=== PATIENT | male | born 1960 | race Caucasian/White ===

== ENCOUNTER 2021-06-18 11:27 | Emergency (ER) | payer BC, SELFPAY ==
--- NOTE | ~2021-06-18 | US_ITS ---
EXAMINATION:US venous doppler LE LT INDICATION:Left leg pain TECHNIQUE: Multiple grayscale, color flow and Doppler images of the left lower extremity deep venous systems were obtained and reviewed. COMPARISON:No prior studies for comparison. FINDINGS: The common femoral, superficial femoral and popliteal veins demonstrate normal respiratory variation, augmentation and compressibility. Color flow is also seen within the posterior tibial, pe roneal, greater saphenous and profunda veins. There is superficial thrombosis in the left lesser saph enous vein. IMPRESSION: 1: No lower extremity deep venous thrombosis. 2: Superficial vein thrombosis of the left lesser saphenous vein. Reviewed, dictated and finalized at location A. MAKER
[2021-06-18 11:36] VITALS: BP 146/79; PULSE 83; RESP 16; TEMP 36.9; O2SAT 100
[2021-06-18 12:31] LABS: Basophils Percent Auto 0.6 % (0.2-1.2); Eosinophils Absolute Auto 0.1 K/mm3 (0-0.3); Eosinophils Percent Auto 0.9 % (0-4.4); Hematocrit 47.4 % (42.0-52.0); Immature Granulocyte Absolute 0.01 K/mm3 (0.00-0.031); Immature Granulocyte Percent A 0.2 % (0-0.5); Lymphocytes Absolute Auto 1.45 K/mm3 (0.9-3.2); Lymphocytes Percent Auto 22.3 % (18.3-44.2); Mean Corpuscular HGB Conc 33.8 g/dl (32-36); Mean Corpuscular Volume 91.9 fl (80-100); Mean Platelet Volume 10.5 fl (7.4-10.4); Monocytes Absolute Auto 0.7 K/mm3 (0.1-0.6); Monocytes Percent Auto 11.4 % (2.6-8.5); Neutrophils Absolute Auto 4.2 K/mm3 (1.3-6.7); Neutrophils Percent Auto 64.6 % (45.5-73.1); Platelet Count Result 222 k/mm3 (150-375); Red Blood Count 5.16 M/mm3 (4.6-6.20); Red Cell Distribution Width 12.8 % (11.5-14.5); White Blood Count 6.5 K/mm3 (4.5-10.0)
[2021-06-18 12:41] LABS: Partial Thromboplastin Time 29.5 SECONDS (22.3-36.8)
[2021-06-18 12:45] LABS: Anion Gap 9 mmol/L (8-16); Blood Urea Nitrogen 13 mg/dL (9-20); CRP < 0.5 mg/dL (<1.0); Calcium 9.7 mg/dL (8.4-10.2); Carbon Dioxide 25 mmol/L (22-30); Chloride 105 mmol/L (98-107); Estimated CRCL calculation 102 ml/min; Estimated Glomerular Filt Rate > 60; Glucose 120 mg/dL (65-110); Sodium 139 mmol/L (137-145)
[2021-06-18 13:21] LABS: Erythrocyte Sedimentation Rate 5 mm/hr (0-20)
--- NOTE | 2021-06-18 13:53 | ED.LOWEXIN ---
HPI - Extremity Injury (Lower) General Chief Complaint: Extremity Injury, Lower Stated Complaint: CALF PAIN. R/O DVT Time Seen by Provider: 06/18/21 12:04 Source: patient Mode of arrival: ambulatory Limitations: no limitations History of Present Illness HPI Narrative: This is a 60-year-old male that presents to the emergency department for left calf pain. Present x2 weeks. Reports some swelling to the area. No recent travel or surgery. Denies fever, erythema, chest pain, or shortness of breath. Related Data Home Medications Medication Instructions Recorded Confirmed cholecalciferol (vitamin D3) 50 2,000 unit PO DAILY 03/30/19 02/23/21 mcg (2,000 unit) tablet Allergies Allergy/AdvReac Type Severity Reaction Status Date / Time azithromycin Allergy Mild BLOOD IN Verified 06/18/21 12:13 STOOL Review of Systems Review of Systems: CONSTITUTIONAL: Denies fever CARDIOVASCULAR: Reports edema. Denies chest pain RESPIRATORY: Denies dyspnea. MUSCULOSKELETAL: Reports myalgia. All systems reviewed & are unremarkable except as noted in HPI and below PMFSH Past Medical History Medical History (Updated 06/18/21 @ 13:58 by Jelly Sequeira PA-C) BMI 34.0-34.9,adult BMI 35.0-35.9,adult Bradycardia Chronic low back pain without sciatica Controlled diabetes mellitus type II without complication Elevated PSA, less than 10 ng/ml PSA 4.4 on 08/12/2020 Encounter for wellness examination in adult Insomnia Social History Social History (Updated 02/23/21 @ 10:05 by Nadiya Gonzalez MA) Smoking status: Former smoker Alcohol intake: current Drinks per week: 5 Substance use: never Substance use type: does not use Exam Narrative: GENERAL: Well-appearing, well-nourished, and in no acute distress. HEAD: Normocephalic, atraumatic. EYES: EOMI. CHEST: No respiratory distress. HEART: Regular rate EXTREMITIES: Normal range of motion. Mild edema to the left calf, tender to palpation. No erythema or warmth. Normal DP pulses SKIN: Warm, dry, no rash. NEURO: No focal deficits. Alert and oriented x3. PSYCH: Normal mood and affect Course Consultations Consultation #1: Spoke with Dr. Elizondo about patient and workup who would like patient started on an aspirin daily and will follow up in clinic Date: 06/18/21 Vital Signs Vital signs: Vital Signs Temperature 98.4 F 06/18/21 11:36 Pulse Rate 83 06/18/21 11:36 Respiratory Rate 16 06/18/21 11:36 Blood Pressure 146/79 H 06/18/21 11:36 Pulse Oximetry 100 06/18/21 11:36 Temperature 98.4 F 06/18/21 11:36 Pulse Rate 83 06/18/21 11:36 Respiratory Rate 16 06/18/21 11:36 Blood Pressure 146/79 H 06/18/21 11:36 Pulse Oximetry 100 06/18/21 11:36 MDM - Extremity Injury (Lower) MDM Narrative Medical decision making narrative: Patient presents to the emergency department for left calf pain and swelling noted over the last couple of weeks. He is afebrile and nontoxic-appearing. White blood cell count is normal. Inflammatory markers are not elevated. Left lower extremity venous Dopplers without evidence of DVT. Does show a superficial vein thrombosis of the left lesser saphenous vein. Patient was updated on case findings. Spoke with Dr. Elizondo about patient and workup who would like patient started on an aspirin daily and will follow up in clinic. Patient is stable and felt appropriate for further outpatient evaluation. He was given warnings to return to the ER Lab Data Attestation: I reviewed the patient's lab results. Result diagrams: 06/18/21 12:15 06/18/21 12:15 Labs: Lab Results 06/18/21 06/18/21 06/18/21 Range/Units 12:15 12:15 12:15 WBC 6.5 (4.5-10.0) K/mm3 RBC 5.16 (4.6-6.20) M/mm3 Hgb 16.0 (14.0-18.0) g/dL Hct 47.4 (42.0-52.0) % MCV 91.9 (80-100) fl MCH 31.0 (26-34) pg MCHC 33.8 (32-36) g/dl RDW 12.8 (11.5-14.5) % Plt Count 222 (150-375) k/
== END 2021-06-18 14:28 | disposition home or self-care (01) ==
PROVIDERS: Physician Assistant; Emergency Provider Emergency Medicine; PCP Family Medicine
DX: I82.812 Embolism and thrombosis of superficial veins of left lower extremity (principal); E11.9 Type 2 diabetes mellitus without complications; Z87.891 Personal history of nicotine dependence
CPT/HCPCS: 36415; 80048; 85025; 85610; 85652; 85730; 86140; 93971; 99284

== ENCOUNTER 2021-12-22 09:17 | Inpatient (IN) | payer BC, SELFPAY ==
[2021-12-22] VITALS (28 sets, daily range): BP systolic 116–164; BP diastolic 70–130; PULSE 72–200; RESP 18–33; TEMP 36.4–37.6; O2SAT 96–100; BMI 31.1
--- NOTE | ~2021-12-22 | XR_ITS ---
EXAMINATION: XR chest 2V DATE: 12/22/2021 09:48 INDICATION: Palpitations. TECHNIQUE: Frontal and lateral views of the chest were obtained. COMPARISON: Chest single view 10/12/2007 FINDINGS: A calcified left lung nodule and calcified left hilar lymph nodes are consistent with old g ranulomatous disease. No pleural effusion or pneumothorax. The heart size is normal. There is mild ch ronic anterior wedging of T11 and T12 vertebral bodies. IMPRESSION: 1. No acute cardiopulmonary disease. Reviewed, dictated and finalized at location A.
--- NOTE | 2021-12-22 09:21 | ECG_ITS ---
Measurements Intervals [place] Rate: 167 P: [place]: 0 QRS: -7 QRSD: 86 T: -38 QT: 176 QTc: 293 Interpretive Statements ATRIAL FIBRILLATION WITH RAPID VENTRICULAR RESPONSE NONSPECIFIC ST & T-WAVE ABNORMALITY ABNORMAL RHYTHM ECG NO PREVIOUS ECG AVAILABLE FOR COMPARISON Electronically Signed On 12-22-2021 10:25:18 CDT by Nikunj Garcia M.D.
[2021-12-22 09:31] LABS: Basophils Absolute Auto 0.1 K/mm3 (0.0-0.1); Basophils Percent Auto 0.7 % (0.2-1.2); Eosinophils Absolute Auto 0.2 K/mm3 (0-0.3); Eosinophils Percent Auto 2.2 % (0-4.4); Hematocrit 51.7 % (42.0-52.0); Hemoglobin 17.2 g/dL (14.0-18.0); Immature Granulocyte Absolute 0.03 K/mm3 (0.00-0.031); Immature Granulocyte Percent A 0.4 % (0-0.5); Lymphocytes Absolute Auto 3.24 K/mm3 (0.9-3.2); Lymphocytes Percent Auto 43.5 % (18.3-44.2); Mean Corpuscular HGB Conc 33.3 g/dl (32-36); Mean Corpuscular Hemoglobin 31.4 pg (26-34); Mean Corpuscular Volume 94.5 fl (80-100); Mean Platelet Volume 10.7 fl (7.4-10.4); Monocytes Percent Auto 12.8 % (2.6-8.5); Neutrophils Percent Auto 40.4 % (45.5-73.1); Platelet Count Result 210 k/mm3 (150-375); Red Blood Count 5.47 M/mm3 (4.6-6.20); Red Cell Distribution Width 13.2 % (11.5-14.5); White Blood Count 7.4 K/mm3 (4.5-10.0)
--- NOTE | 2021-12-22 09:31 | ED.ARRPALP ---
HPI - Arrhythmia/Palpitations General Chief Complaint: Arrhythmia/Palpitations Stated Complaint: palpitations - history AFIB Time Seen by Provider: 12/22/21 09:29 History of Present Illness HPI narrative: This is a 61-year-old male with past medical history of paroxysmal A. fib, anxiety, hypertension, who presents to the emergency department complaining of lightheadedness and palpitations. He states he noted the palpitations approximately 45 minutes prior to arrival. This is not accompanied by pain and has no specific trigger. He states he has felt similar symptoms before, that required cardioversion. He states he feels a bit dehydrated. He denies weakness, numbness, abdominal pain, vomiting, fevers or chills, burning with urination or increased urination. Related Data Home Medications Medication Instructions Recorded Confirmed cholecalciferol (vitamin D3) 50 2,000 unit PO DAILY 03/30/19 12/22/21 mcg (2,000 unit) tablet mecobalamin (vitamin B12) 1,000 1,000 mcg PO DAILY 12/22/21 12/22/21 mcg chewable tablet (B12 Active) zolpidem 10 mg tablet (Ambien) 5 mg PO QHS PRN insomnia 12/22/21 12/22/21 Allergies Allergy/AdvReac Type Severity Reaction Status Date / Time azithromycin Allergy Mild BLOOD IN Verified 12/22/21 09:18 STOOL Review of Systems Review of Systems: CONSTITUTIONAL: Denies fever, chills, or sweats. EYES: Denies visual changes, redness, or discharge. ENT: Denies rhinorrhea, congestion, sore throat, or otalgia. CARDIOVASCULAR: +palpitations, Denies chest pain, or edema. RESPIRATORY: Denies cough or dyspnea. GASTROINTESTINAL: Denies abdominal pain, nausea, vomiting, or diarrhea. GENITOURINARY: Denies dysuria or hematuria. SKIN: Denies rash or itching. MUSCULOSKELETAL: Denies back pain, joint pain, or myalgia. NEUROLOGIC: Denies headache, numbness, dizziness, or weakness. PSYCHIATRIC: Denies anxiety or depression. [facility] Past Medical History Medical History (Updated 12/22/21 @ 11:19 by Solo Carr MD) Acute superficial venous thrombosis of lower extremity (~06/04/21) superficial vein thrombosis in the left lesser saphenous vein in ER 06/18/2021 BMI 33.0-33.9,adult BMI 34.0-34.9,adult BMI 35.0-35.9,adult Bradycardia Chronic low back pain without sciatica Colon cancer screening Cologuard screening was negative on 05/26/2019. Recheck in 3 years. Controlled diabetes mellitus type II without complication Glucose 104 with hemoglobin A1c 5.7 on 08/17/2021. COVID-19 (10/23/21) positive home test on 10/22/2021. Elevated PSA, less than 10 ng/ml PSA 4.4 on 08/12/2020. PSA 5.3 with 19.4% free PSA on 08/17/2021. Encounter for wellness examination in adult Frequent epistaxis Gross hematuria Insomnia Lateral epicondylitis of left elbow Obesity (BMI 30.0-34.9) Family History Family History (Updated 12/22/21 @ 12:34 by Simin Weston RN) Mother Acute myocardial infarction Congestive heart failure Hypertension Other No problems noted. Father History of blood clots Chronic obstructive pulmonary disease Prostate carcinoma Sibling History of blood clots Cerebrovascular accident Diabetes mellitus Hypertension Social History Social History Smoking status: Never smoker Alcohol intake: current Drinks per week: 14 Substance use: never Substance use type: does not use Spiritual care concerns: No Exam Narrative: GENERAL: Well-appearing, well-nourished, and in no acute distress. HEAD: Normocephalic, atraumatic. EYES: PERRLA and EOMI. ENT: Nares clear, no rhinorrhea or epistaxis. Mucous membranes moist. Oropharynx without tonsillar hypertrophy exudate or other lesions. Bilateral TMs pearly sanabria nonbulging NECK: Supple. No adenopathy or masses. No carotid bruits or JVD CHEST: Clear to auscultation. No respiratory distress. No wheezes rales or rhonchi HEART: Irregularly irregular. No murmur heard. No
[2021-12-22] MEDS: dilTIAZem HCl INJ 25 MG/5 ML VIAL 20 MG IV PUSH ×2 (09:32→09:55)
[2021-12-22] MEDS: LACTATED RINGERS 1,000 ML 999 ML IV CONT (09:35)
[2021-12-22 09:44] LABS: INR 1.1; Prothrombin Time 13.5 Seconds (11.1-14.7)
[2021-12-22] MEDS: dilTIAZem HCL 60 MG TABLET PO (09:50)
[2021-12-22 10:18] LABS: Alanine Aminotransferase 20 U/L (6-50); Albumin Level 4.7 g/dL (3.5-5.1); Alkaline Phosphatase 104 U/L (38-126); Anion Gap 11 mmol/L (8-16); Aspartate Amino Transferase 21 U/L (17-59); Blood Urea Nitrogen 12 mg/dL (9-20); Calcium 9.7 mg/dL (8.4-10.2); Carbon Dioxide 23 mmol/L (22-30); Chloride 105 mmol/L (98-107); Estimated CRCL calculation 89 ml/min; Estimated Glomerular Filt Rate > 60; Glucose 136 mg/dL (65-110); Lipase 76 U/L (23-300); Potassium 3.5 mmol/L (3.4-5.0); Sodium 139 mmol/L (137-145)
[2021-12-22] MEDS: ASPIRIN 81 MG CHEWABLE TABLET 324 MG PO (10:39)
[2021-12-22 10:45] LABS: Troponin I < 0.012 ng/mL (0.000-0.034)
[2021-12-22] MEDS: METOPROLOL TARTRATE 50 MG TAB 25 MG PO (12:07)
--- NOTE | 2021-12-22 12:20 | ADMGEN ---
This patient, Marshall Thomson, was admitted to IMU Room 203-01. Patient/family oriented to hospital policies and general routines including ID bracelet, bed and alarms, visiting hours, pain management, procedures, bathroom and other care routines, personal items, smoking policy, room service/diet, and visiting hours. Information on how to activate the Rapid Response Team has been discussed. Patient/Family are encouraged to report perceived risks to care and to ask questions if they do not understand what they are told or what they should do.
[2021-12-22 12:55] LABS: Troponin I < 0.012 ng/mL (0.000-0.034)
--- NOTE | 2021-12-22 14:13 | PM.CNCAR ---
Assessment and Plan Assessment and plan (1) Atrial fibrillation with rapid ventricular response: Code(s): I48.91 - Unspecified atrial fibrillation Status: Acute Plan This is a 61-year-old man with a near 30 year history of paroxysmal atrial fibrillation who enters the hospital this morning with a symptomatic recurrence of his arrhythmia. His arrhythmia is very commonly self-limited today's episode however is persistent at this juncture for about 6 hours. He did make the decision to anticoagulate himself this morning by taking apixaban. He had also received some diltiazem and metoprolol in the emergency room and his heart rate is currently in the 80s. I am going to continue the apixaban starting with another dose this evening and I am going to start him on antiarrhythmic therapy with sotalol. Hopefully this will convert him to sinus rhythm. I will follow him with you while he is in the hospital and if his AFib persists we can certainly plan to electrically cardiovert him on Saturday morning since he has been anticoagulated since the onset of the arrhythmia he would not need esophageal echo in my opinion. Nikunj Garcia MD [facility] History of Present Illness History of Present Illness Consult date/time: 12/22/21 14:13 Consult reason: atrial fibrillation Reason For Visit: AFIB with RVR Narrative: This is a 61-year-old man I am seeing at the request of the hospitalist for assistance with the treatment of atrial fibrillation. Patient is unknown to me prior to this encounter. He has a history of paroxysmal atrial fib dating back to the mid . Over that period of close to 30 years he has had 6 or 7 episodes of atrial fibrillation that have cause symptomatic palpitations and medical evaluation. On most of these episodes he spontaneously has converted back to sinus rhythm in the emergency room without requiring any additional treatment. He thinks he has had 3 or 4 echocardiograms done most recently as last year in another final assembler's office out in [facility] which he has told were normal. He had the last episode of atrial fibrillation about 4 years ago when he was out of town on business. He went to a local emergency room and actually was electrically cardioverted to sinus rhythm and allowed to be discharged. He has never been placed on any antiarrhythmic medical therapy. The final assembler who saw him for consult in [facility] last year recommended and prescribed apixaban for him to take. He got the prescription but never did start taking it because he was maintaining sinus rhythm. This morning he noted the onset of atrial fibrillation again with palpitations and tachycardia as he was making breakfast in his home. He says he is had a relatively stressful night before interacting with a friend of his and also was under some stress because he is sitting for a friend's dog and he finds that somewhat anxiety provoking. He noted the onset of atrial fibrillation this morning he sat down to relax for a while because many times the episodes will be self-limited. When this episode was persistent for a couple hours he came to the emergency room. In the ED his electrocardiogram confirmed AFib with RVR looks a he was given some diltiazem intravenously he was also given a dose of metoprolol orally and was admitted to the IMU. The patient shared with me that when this began this morning he took a dose of apixaban 5 mg tablet that he had from the prescription supplied as I described above. His only other significant chronic medical problem is hypertension which he states is usually well controlled with lisinopril. Review of Systems Constitutional: Constitutional: Reports no additional constitutional complaints Eyes: Eyes: Reports no additional eye complaints ENT: Reports system reviewed and no additional complaints, except as documented Cardiovascular: Cardiovascular: Reports palpitations Respiratory: Respiratory: Reports no additional r
[2021-12-22] MEDS: LACTATED RINGERS 1,000 ML 125 ML IV CONT ×2 (15:03→23:10)
[2021-12-22] MEDS: SOTALOL HCL 80 MG TABLET PO ×2 (15:04→23:11)
[2021-12-22 15:29] LABS: Troponin I 0.013 ng/mL (0.000-0.034)
--- NOTE | 2021-12-22 16:00 | ECG_ITS ---
Measurements Intervals [place] Rate: 87 P: [place]: 0 QRS: -32 QRSD: 83 T: 19 QT: 296 QTc: 358 Interpretive Statements ATRIAL FIBRILLATION CANNOT RULE OUT INFERIOR MYOCARDIAL INFARCTION, AGE INDETERMINATE ABNORMAL ECG COMPARED TO ECG 12/22/2021 09:24:31 HEART RATE HAS DECREASED Electronically Signed On 12-23-2021 13:24:16 CDT by Gokul Person M.D.
[2021-12-22] MEDS: APIXABAN 5 MG TABLET PO (20:24)
[2021-12-22 20:42] LABS: Glucose Point of Care 137 mg/dl (65-105)
[2021-12-23] VITALS (18 sets, daily range): BP systolic 106–141; BP diastolic 68–95; PULSE 53–89; RESP 20; TEMP 35.7–37.2; O2SAT 98–100
--- NOTE | 2021-12-23 00:03 | ECG_ITS ---
Measurements Intervals [place] Rate: 75 P: [place]: 0 QRS: -22 QRSD: 97 T: 5 QT: 336 QTc: 377 Interpretive Statements ATRIAL FIBRILLATION LOW QRS VOLTAGE IN PRECORDIAL LEADS ABNORMAL ECG COMPARED TO ECG 12/22/2021 15:57:51 NO SIGNIFICANT CHANGES Electronically Signed On 12-23-2021 13:27:20 CDT by Gokul Person M.D.
[2021-12-23] MEDS: LACTATED RINGERS 1,000 ML 125 ML IV CONT (06:31)
--- NOTE | 2021-12-23 08:41 | PM.IMHP ---
H&P: HPI History of Present Illness Date/Time: 12/23/21 08:41 Chief Complaint: Atrial fibrillation Narrative: Date of service: 12/23/2021 Marshall Thomson is a 61-year-old male with a history of paroxysmal atrial fibrillation s/p cardioversion in 1984 and 2017 not maintained on anticoagulation, hypertension, low back pain, and superficial venous thrombosis who presented to the emergency department on 12/22/2021 with complaints of palpitations and lightheadedness. The patient awoke on the morning of 12/22 feeling normally. He was making breakfast when he suddenly felt that his ?heart was not beating correctly? and he felt slightly lightheaded. He initially thought this might be related to PVCs, which he states he notices on an almost monthly basis. He states this typically improves if he takes some deep breaths and attempts to relax, however his symptoms persisted. He then knew he was in AFib due to his history and similar symptoms The patient feels this was triggered by having a stressful and aggravating week following a confrontation with his friend. The night before, he took 1-2 shots of bourbon. He states in the past, each episode of atrial fibrillation he has had has been triggered by drinking cold liquids. The patient states he was cardioverted in 2017 while traveling in [place]. At that time he filled a prescription for Eliquis but never took this medication. He is not maintained on any rate or rhythm controlling agents. He is not established with a cloth calender and follows with his PCP. He reports having seen an spray machine loader in the past several years ago. He did take his 1st dose of Eliquis the morning of 12/22 as soon as he realized he was in AFib. On presentation to the ED, his EKG showed atrial fibrillation with rapid ventricular response with heart rate of 167. He was given diltiazem with rate improvement. Additional vital signs were stable, laboratory workup unremarkable, troponin negative. He has been admitted to the hospitalist service for observation and Cardiology consultation. Supervising physician for this history and physical is Dr. Helena Patiño. Review of Systems Review of Systems: All systems reviewed with pertinent positives and negatives as per HPI. The patient denies chest pain, shortness of breath, dizziness, lightheadedness, weakness, nausea, vomiting, abdominal pain, diarrhea, dysuria. States his blood sugars are very well controlled at home and he is not on any medications for diabetes. [facility] Past Medical History Medical History (Updated 12/23/21 @ 08:54 by Megha Pruitt PA-C) Acute superficial venous thrombosis of lower extremity (~06/04/21) superficial vein thrombosis in the left lesser saphenous vein in ER 06/18/2021 Bradycardia Chronic low back pain without sciatica Colon cancer screening Cologuard screening was negative on 05/26/2019. Recheck in 3 years. Controlled diabetes mellitus type II without complication Glucose 104 with hemoglobin A1c 5.7 on 08/17/2021. COVID-19 (10/23/21) positive home test on 10/22/2021. Elevated PSA, less than 10 ng/ml PSA 4.4 on 08/12/2020. PSA 5.3 with 19.4% free PSA on 08/17/2021. Frequent epistaxis Gross hematuria History of cardioversion 1994, 2017 Insomnia Lateral epicondylitis of left elbow Obesity (BMI 30.0-34.9) Family History Family History Mother Acute myocardial infarction Congestive heart failure Hypertension Father History of blood clots Chronic obstructive pulmonary disease Prostate carcinoma Atrial fibrillation Sibling History of blood clots Cerebrovascular accident Diabetes mellitus Hypertension Social History Social History (Updated 12/23/21 @ 08:57 by Megha Pruitt PA-C) Social History: Lives independently Recently retired in February 2021 Full code POA: Anny, PCP: Dr. Amari Elizondo Smoking packs per day: 0.5 Smo
[2021-12-23] MEDS: SOTALOL HCL 80 MG TABLET PO ×2 (09:39→21:02)
[2021-12-23] MEDS: lisinopriL 20 MG TABLET PO (09:40)
[2021-12-23] MEDS: CHOLECALCIFEROL 1,000 UNITS TABLET 2000 UNITS PO (09:40)
[2021-12-23] MEDS: CYANOCOBALAMIN 1,000 MCG TABLET 1000 MCG PO (09:41)
[2021-12-23] MEDS: APIXABAN 5 MG TABLET PO ×2 (09:41→21:02)
--- NOTE | 2021-12-23 09:42 | ECG_ITS ---
Measurements Intervals [place] Rate: 54 P: 16 SD: 185 QRS: -24 QRSD: 94 T: 7 QT: 368 QTc: 351 Interpretive Statements SINUS BRADYCARDIA LOW QRS VOLTAGE IN PRECORDIAL LEADS BORDERLINE ECG COMPARED TO ECG 12/23/2021 00:45:51 SINUS RHYTHM HAS REPLACED ATRIAL FIBRILLATION Electronically Signed On 12-23-2021 13:29:54 CDT by Gokul Person M.D.
--- NOTE | 2021-12-23 11:45 | ECG_ITS ---
Measurements Intervals [place] Rate: 59 P: 26 [place]: 198 QRS: -8 QRSD: 82 T: 8 QT: 366 QTc: 363 Interpretive Statements SINUS BRADYCARDIA LOW QRS VOLTAGE IN PRECORDIAL LEADS CANNOT RULE OUT INFERIOR MYOCARDIAL INFARCTION, PROBABLY OLD BORDERLINE ECG COMPARED TO ECG 12/23/2021 09:55:55 NO SIGNIFICANT CHANGE Electronically Signed On 12-23-2021 13:32:31 CDT by Gokul Person M.D.
--- NOTE | 2021-12-23 12:49 | PM.PNCARD ---
Progress Note: A&P Assessment and Plan (1) Atrial fibrillation with rapid ventricular response: Code(s): I48.91 - Unspecified atrial fibrillation Status: Acute Assessment and Plan: Paroxysmal atrial fibrillation admitted with rapid ventricular response, symptomatic converted to sinus rhythm on sotalol. Patient was not previously on AV arlet blocking agents or antiarrhythmic therapy. Very lengthy discussion with regards plan of care, medication options. Patient was not certain he wanted to take any medications let alone remain hospitalized for sotalol loading. My primary recommendation was that he remain hospitalized on telemetry to complete sotalol loading with routine EKG to monitor QT corrected interval which has been stable thus far. Given his longstanding but quite unusual pattern of AFib recurrence in the past if he does not desire to remain on sotalol secondary recommendation would be to discontinue in favor of metoprolol. He was contemplating no medical therapy which while I advised would be suboptimal nor recommended ultimate decision was his. I very clearly advised he must remain on systemic anticoagulation for 30 days post chemical cardioversion on sotalol. CHADS2 Vasc score 1 (HTN), 2 (DM although HgbA1c 5.7% he denies dx of DM) therefore Aspirin daily thereafter is reasonable until age 65 (unless DM dx) in which case systemic anticoagulation and discontinuation of aspirin would be most appropriate. After much discussion regarding the relative pros and cons, patient has decided he will remain hospitalized to complete sotalol loading and continue upon discharge as an outpatient. He agrees to continue Eliquis 5 mg twice daily for 30 days post cardioversion and then resume aspirin 81 mg. Patient explained he feels a myriad of contributions resulted in AFib recurrence such as stress, fatigue, alcohol intake and relative dehydration. He has no history of JANNY. Continue sotalol loading 80 mg twice daily. His 5th dose will be tomorrow morning. EKG and QT interval stable after that he may be discharged home to follow up as an outpatient. Continue telemetry for now. He is aware of facial life-threatening ventricular arrhythmia risk with sotalol particularly if QT interval prolonged hence the need for monitored loading in the hospital. He understands and agrees. Risks and benefits discussed at length. All questions answered to his satisfaction. Spent 37 minutes in the care of this patient including discussing the bedside, examination, chart review, medical decision making, and documentation. (2) Essential (primary) hypertension: Code(s): I10 - Essential (primary) hypertension Status: Acute Assessment and Plan: BP stable. Continue antihypertensive therapy. Subjective Date/time seen: Date of service: 12/23/21 12:49 Follow-up for atrial fibrillation Patient converted to sinus rhythm this morning on sotalol after 3 doses. Very lengthy discussion held with the patient greater than 30 minutes regarding options for medical management. He was unaware he would need to be monitored on sotalol for 5 days in the hospital and states he is not certain if he was to continue with this therapy. He denies palpitations, chest pain or shortness of breath. States he feels fine otherwise. Review of Systems Review of Systems: No dizziness, palpitations, fevers or chills. Constitutional: Constitutional: Reports no additional constitutional complaints Eyes: Eyes: Reports no additional eye complaints ENT: Reports system reviewed and no additional complaints, except as documented Cardiovascular: Cardiovascular: Reports palpitations Respiratory: Respiratory: Reports no additional respiratory complaints Gastrointestinal: Gastrointestinal: Reports no additional gastrointestinal complaints Musculoskeletal: Musculoskeletal: Reports no additional musculoskeletal complaints Integumentary/Breasts: Skin/Breast: Reports sys
--- NOTE | 2021-12-23 21:17 | ECG_ITS ---
Measurements Intervals [place] Rate: 49 P: 23 [place]: 189 QRS: -13 QRSD: 92 T: 0 QT: 394 QTc: 356 Interpretive Statements SINUS BRADYCARDIA LOW QRS VOLTAGE IN PRECORDIAL LEADS CANNOT RULE OUT INFERIOR INFARCTION, AGE INDETERMINATE BORDERLINE ECG COMPARED TO ECG 12/23/2021 11:50:52 NO SIGNIFICANT CHANGES Electronically Signed On 12-24-2021 14:35:11 CDT by Gokul Person M.D.
[2021-12-24] VITALS (9 sets, daily range): BP systolic 127–130; BP diastolic 71–84; PULSE 42–65; RESP 16–20; TEMP 36.3–36.9; O2SAT 98–100
[2021-12-24 04:58] LABS: Anion Gap 8 mmol/L (8-16); Blood Urea Nitrogen 13 mg/dL (9-20); Calcium 8.8 mg/dL (8.4-10.2); Carbon Dioxide 25 mmol/L (22-30); Chloride 107 mmol/L (98-107); Estimated CRCL calculation 89 ml/min; Estimated Glomerular Filt Rate > 60; Glucose 90 mg/dL (65-110); Potassium 4.2 mmol/L (3.4-5.0); Sodium 140 mmol/L (137-145)
[2021-12-24 04:59] LABS: Hematocrit 43.5 % (42.0-52.0); Hemoglobin 14.4 g/dL (14.0-18.0); Mean Corpuscular HGB Conc 33.1 g/dl (32-36); Mean Corpuscular Hemoglobin 31.4 pg (26-34); Mean Corpuscular Volume 94.8 fl (80-100); Mean Platelet Volume 11.5 fl (7.4-10.4); Platelet Count Result 196 k/mm3 (150-375); Red Blood Count 4.59 M/mm3 (4.6-6.20); Red Cell Distribution Width 13.2 % (11.5-14.5); White Blood Count 6.7 K/mm3 (4.5-10.0)
[2021-12-24] MEDS: CYANOCOBALAMIN 1,000 MCG TABLET 1000 MCG PO (08:58)
[2021-12-24] MEDS: lisinopriL 20 MG TABLET PO (08:58)
[2021-12-24] MEDS: APIXABAN 5 MG TABLET PO (08:59)
[2021-12-24] MEDS: CHOLECALCIFEROL 1,000 UNITS TABLET 2000 UNITS PO (08:59)
[2021-12-24] MEDS: SOTALOL HCL 40 MG TABLET PO (11:47)
--- NOTE | 2021-12-24 13:47 | ECG_ITS ---
Measurements Intervals [place] Rate: 54 P: 25 NV: 201 QRS: -7 QRSD: 93 T: -7 QT: 366 QTc: 349 Interpretive Statements SINUS BRADYCARDIA WITH FIRST-DEGREE AV BLOCK LOW QRS VOLTAGE IN PRECORDIAL LEADS BORDERLINE ECG COMPARED TO ECG 12/23/2021 22:02:26 FIRST-DEGREE AV BLOCK APPRECIATED Electronically Signed On 12-24-2021 14:49:14 CDT by Gokul Person M.D.
--- NOTE | 2021-12-24 13:56 | PM.PNCARD ---
Progress Note: A&P Assessment and Plan (1) Atrial fibrillation with rapid ventricular response: Code(s): I48.91 - Unspecified atrial fibrillation Status: Acute Assessment and Plan: Paroxysmal atrial fibrillation admitted with rapid ventricular response, symptomatic converted to sinus rhythm on sotalol. Patient was not previously on AV arlet blocking agents or antiarrhythmic therapy. Very lengthy discussion with regards plan of care, medication options once again. Given bradycardia, complaints of fatigue unclear if related to medication side effects versus transient bradycardia. I suspect more related medications self and fact that he has not been active in the past several days in the hospital. We discussed options including discontinuation of sotalol versus reduction of 40 mg twice daily in observation. Patient agrees ultimately to reduce doses he would like to try and continue possible and we will review his heart rate and symptoms subsequent with repeat 12 EKG prior to discharge. If he is not feeling well or symptomatic bradycardia discontinue sotalol and may discharge home to follow up as an outpatient with Dr. Garcia. Continue anticoagulation for a minimum of 30 days as previously counseled. If he tolerates well continue sotalol 40 mg twice daily and follow up as an outpatient. Twelve lead EKG post sotalol today reveals sinus bradycardia with acceptable QT interval no evidence of sotalol toxicity. Patient stable for discharge home to follow up as an outpatient within next 2-[address] Garcia. Patient denies a history of diabetes but has been told on occasion he is prediabetic. I explained concern with regards to anticoagulation and overall stroke risk with atrial fibrillation and he should continue to monitor this very closely as otherwise recommendation for systemic anticoagulation due to elevated stroke risk and CHADS2 Vasc score of 2 would then warrant indefinite systemic anticoagulation. He had been asked ambulate halls to ensure tolerance and heart rate increment which was reasonable and tolerated well. Spent 23 minutes in the care of this patient at bedside including examination, chart review, medical decision-making, and documentation. (2) Essential (primary) hypertension: Code(s): I10 - Essential (primary) hypertension Status: Acute Assessment and Plan: BP stable. Continue antihypertensive therapy. (3) Medication side effects: Code(s): T88.7XXA - Unspecified adverse effect of drug or medicament, initial encounter Status: Acute Assessment and Plan: As above. Intermittent bradycardia although heart rate increased reasonably well without symptoms. Monitor tolerance. Communicate as an outpatient. Subjective Date/time seen: Date of service: 12/24/21 13:56 Follow-up for atrial fibrillation, sotalol loading Patient doing well. States he feels a little more fatigued today. Mildly bradycardic overnight and this morning heart rates in 50s-70's. Sotalol initially held by nurse extensive discussion held with patient at bedside. Denies dizziness, chest pain, palpitations. Review of Systems Review of Systems: No fevers or chills, nausea vomiting. States he just feels tired in general but admits he has not been doing anything for the past several days. Constitutional: Constitutional: Reports no additional constitutional complaints Eyes: Eyes: Reports no additional eye complaints ENT: Reports system reviewed and no additional complaints, except as documented Cardiovascular: Cardiovascular: Reports palpitations Respiratory: Respiratory: Reports no additional respiratory complaints Gastrointestinal: Gastrointestinal: Reports no additional gastrointestinal complaints Musculoskeletal: Musculoskeletal: Reports no additional musculoskeletal complaints Integumentary/Breasts: Skin/Breast: Reports system reviewed and no additional complaints, except as docu Ivet
--- NOTE | 2021-12-24 14:30 | PM.DS ---
DS: Admitting Diagnosis Discharge Date 12/24/2021 Admitting Diagnosis Atrial fibrillation with rapid ventricular response DS: Discharge Diagnosis Discharge Diagnosis (1) Atrial fibrillation with rapid ventricular response: Code(s): I48.91 - Unspecified atrial fibrillation Status: Acute Assessment and Plan: Evident on EKG on admission Received diltiazem and metoprolol in the ED with improvement in rate Patient was seen in consultation by Cardiology Started on sotalol 80 mg q.12h and sinus rhythm was restored He did have some mild bradycardia with this and was decreased to 40 mg q.12h. He remained hospitalized for sotalol loading and follow-up EKG was reviewed with normal QTc interval. He will continue sotalol 40 mg q.12h and follow-up with cardiology in 2-4 weeks Initiated on Eliquis 5 mg q.12h for systemic anticoagulation. Will need to proceed with this for at least 30 days following chemical cardioversion. Discussed with patient anticoagulation precautions. (2) Essential (primary) hypertension: Code(s): I10 - Essential (primary) hypertension Status: Acute Assessment and Plan: Blood pressures reviewed and were well controlled. Continue lisinopril (3) Chronic anxiety: Code(s): F41.9 - Anxiety disorder, unspecified Status: Acute Assessment and Plan: No acute issues Continue home regimen of alprazolam 0.25 mg TID PRN DS: Summary Hospital Course Hospital Course: Date of admission: 12/22/2021 Date of discharge: 12/24/2021 Marshall Thomson is a 61-year-old male with a history of paroxysmal atrial fibrillation s/p cardioversion in 1984 and 2017 not maintained on anticoagulation, hypertension, low back pain, and superficial venous thrombosis who presented to the emergency department on 12/22/2021 with complaints of palpitations and lightheadedness. On presentation to the ED, his EKG showed atrial fibrillation with rapid ventricular response with heart rate of 167.? He was given diltiazem with rate improvement.? Additional vital signs were stable, laboratory workup unremarkable, troponin negative. He was admitted to the hospitalist service for further evaluation management was seen in consultation by cardiology. Please see above for further details. Patient was started on sotalol and converted to sinus rhythm. He will continue with sotalol on discharge and will follow-up with cardiology as an outpatient. He will remain on systemic anticoagulation for at least 30 days following chemical cardioversion. Discussed with patient anticoagulation precautions. Patient was feeling back to his usual state of health and was very eager for discharge home. Given overall improvement, he was determined to no longer require inpatient care and was discharged in hemodynamically stable condition on 12/24/2021. Cardiology in agreement with discharge plans. Patient aware of need for outpatient follow-up. Status at Discharge Functional status at discharge: independent ambulation Overall status at discharge: patient is back to baseline Time Spent with Patient Time attestation: Total time spent providing and/or coordinating discharge services: 34 minutes Time spent: Greater than 30 minutes Specific discharge activities: Patient education Exam Narrative: General: Well-nourished, well-appearing 61-year-old male, sitting up in bed, comfortable, NARD Neuro: awake, alert and oriented x4, speech clear, no focal neuro deficits noted HEENMT: normocephalic, atraumatic, EOMI, sclerae anicteric, moist oral mucosa Respiratory: clear to auscultation bilaterally, nonlabored breathing Cardio: Regular rate, irregularly irregular rhythm Abdomen: nondistended, normoactive bowel sounds, soft, nontender to palpation Extremities: no edema, erythema, or tenderness to palpation, DP pulses 2+ bilaterally Skin: Faint ecchymosis of left calf, no rashes or lesions, warm and dry Psych: appropriate mood an
== END 2021-12-24 15:35 | disposition home or self-care (01) | DRG 310 ==
LOC: ANHED 11:19 → ANHIMU 12:13
PROVIDERS: Physician Assistant; Admitting Provider Internal Medicine; Emergency Provider Preventive Medicine Aerospace Medicine; PCP Family Medicine; Visit Provider Hospitalist
DX: I48.0 Paroxysmal atrial fibrillation (principal); I10 Essential (primary) hypertension; R00.1 Bradycardia, unspecified; T44.7X5A Adverse effect of beta-adrenoreceptor antagonists, initial encounter; F41.9 Anxiety disorder, unspecified; G47.00 Insomnia, unspecified; M54.50 Low back pain, unspecified; G89.29 Other chronic pain; E66.9 Obesity, unspecified; Z68.31 Body mass index [BMI] 31.0-31.9, adult; Z86.16 Personal history of COVID-19
CPT/HCPCS: 36415; 71046; 80048; 80053; 82948; 83690; 84484; 85025; 85027; 85610; 85730; 93005; 96361; 96374; 99285; A9270; G0378; J7120

== ENCOUNTER 2022-03-23 13:14 | Emergency (ER) | payer BC, SELFPAY ==
[2022-03-23 13:27] VITALS: BP 146/76; PULSE 65; RESP 18; TEMP 36.4; O2SAT 100
--- NOTE | 2022-03-23 13:47 | ED.URI ---
HPI - URI/Sore Throat General Chief Complaint: Upper Respiratory Infection Stated Complaint: . Source: patient Mode of arrival: ambulatory History of Present Illness HPI Narrative: This is a 61-year-old male who presented to our urgent care with complaints of frontal and temporal pain with pressure to diffuse bilateral.. Patient notes that his secretion are clear in color. The patient denies SOB, CP, palpitation, extremity numbness, lightheadedness, dizziness, constipation, diarrhea, chills, or fever. Related Data Allergies Allergy/AdvReac Type Severity Reaction Status Date / Time azithromycin Allergy Mild BLOOD IN Verified 03/23/22 13:30 STOOL Review of Systems Review of Systems: A 14 organ system Review of Systems was performed and pertinent positives included in the HPI, otherwise remaining ROS is negative. [facility] Past Medical History Medical History Abnormal fasting glucose glucose 104 with hemoglobin A1c 5.7 on 08/17/2021. Glucose 90 in the ER on 08/28/2021. Acute superficial venous thrombosis of lower extremity (~06/04/21) superficial vein thrombosis in the left lesser saphenous vein in ER 06/18/2021 Atrial fibrillation with rapid ventricular response BMI 31.0-31.9,adult BMI 32.0-32.9,adult Bradycardia Chronic low back pain without sciatica Colon cancer screening Cologuard screening was negative on 05/26/2019. Recheck in 3 years. Controlled diabetes mellitus type II without complication Glucose 104 with hemoglobin A1c 5.7 on 08/17/2021. COVID-19 (10/23/21) positive home test on 10/22/2021. Elevated PSA, less than 10 ng/ml PSA 4.4 on 08/12/2020. PSA 5.3 with 19.4% free PSA on 08/17/2021. Frequent epistaxis Gross hematuria Heart palpitations History of cardioversion 1994, 2017 Insomnia Lateral epicondylitis of left elbow Lightheadedness Medication side effects Obesity (BMI 30.0-34.9) Family History Family History Mother Acute myocardial infarction Congestive heart failure Hypertension Father History of blood clots Chronic obstructive pulmonary disease Prostate carcinoma Atrial fibrillation Sibling History of blood clots Cerebrovascular accident Diabetes mellitus Hypertension Social History Social History Social History: Lives independently Recently retired in February 2021 Full code POA: Anny, PCP: Dr. Amari Elizondo Smoking packs per day: 0.5 Smoking cigarettes per day: 10.0 Years smoked: 30 Smoking pack-years: 15.00 Smoking status: Former smoker Alcohol intake: former Drinks per week: 14 Alcohol use details: 1 beer and 1 shot of bourbon daily Substance use: never Substance use type: does not use Lack of Transportation: No Lack of Food: Never True Current Housing: I Have Housing Concerned About Future Housing: No Difficulty Paying Gas/Electric Bills: No Difficulty Paying for Meds: Decline to Answer Currently Unemployed: No Education: Decline to Answer Difficulty w/ Childcare or Family Care: No Spiritual care concerns: No Exam Narrative: GENERAL: This is a well-nourished, well-developed patient, in no apparent distress. HEAD: normocephalic, atraumatic. EYES: PERRL. Sclera clear/white. Vision is grossly intact. EARS: External ears normal, auditory canals clear and without drainage, TMs normal without perforation. Hearing grossly intact. NOSE: External nose normal with no obvious nasal discharge, nares without redness, no rhinorrhea. THROAT: Mucous membranes moist, posterior pharynx clear. NECK: Neck supple, non-tender without lymphadenopathy, masses or thyromegaly. CARDIOVASCULAR: Regular rate and rhythm without murmurs, gallops, or rubs. RESPIRATORY: Clear to auscultation. Breath sounds equal bilaterally. No wheezes, rales, or rhonchi. GASTROINTESTINAL
== END 2022-03-23 13:50 | disposition home or self-care (01) ==
PROVIDERS: Emergency Provider Nurse Practitioner; PCP Family Medicine
DX: J32.9 Chronic sinusitis, unspecified (principal); I48.91 Unspecified atrial fibrillation; E11.9 Type 2 diabetes mellitus without complications; Z87.891 Personal history of nicotine dependence
CPT/HCPCS: 99213; G0463

== ENCOUNTER 2022-05-18 16:28 | Observation (INO) | payer BC, SELFPAY ==
[2022-05-18] VITALS (20 sets, daily range): BP systolic 97–142; BP diastolic 78–116; PULSE 78–166; RESP 11–27; TEMP 36.6; O2SAT 97–100
--- NOTE | ~2022-05-18 | XR_ITS ---
EXAMINATION: XR chest 2V 05/18/2022 17:33 INDICATION: Chest palpitations PROCEDURE: 2 view chest COMPARISON: 12/22/2021 and 10/12/2007 FINDINGS: The lungs are clear. The cardiomediastinal silhouette is within normal limits. There are no pleural effusions. There is no pneumothorax suspected. Stable calcified granuloma left upper lob e. IMPRESSION: 1: NO ACUTE CARDIOPULMONARY DISEASE. Reviewed, dictated and finalized at location A. EXPERIENCE LEAD
--- NOTE | 2022-05-18 16:30 | ECG_ITS ---
Measurements Intervals [place] Rate: 145 P: [place]: 0 QRS: -8 QRSD: 90 T: 49 QT: 251 QTc: 391 Interpretive Statements ATRIAL FIBRILLATION WITH RAPID VENTRICULAR RESPONSE BORDERLINE ST-T WAVE ABNORMALITY- ANTEROLAT/HIGH LAT LEADS BASELINE ARTIFACT- I, II, III, AVR ABNORMAL ECG COMPARED TO ECG 12/24/2021 13:54:18 ATRIAL FIBRILLATION NOW PRESENT ST (T WAVE) DEVIATION NOW PRESENT Electronically Signed On 05-18-2022 16:43:49 PORTABLE SAWYER by Luke Claudio D.O.
--- NOTE | 2022-05-18 17:15 | ED.ARRPALP ---
HPI - Arrhythmia/Palpitations General Chief Complaint: Arrhythmia/Palpitations Stated Complaint: afib sent from Economic Adviser office Time Seen by Provider: 05/18/22 16:53 History of Present Illness HPI narrative: Met 61-year-old male history of paroxysmal atrial fibrillation and hypertension presents to the emergency room for evaluation of A. fib with RVR. Patient states he was visiting a family member here in the hospital when he became upset with his family member and began experiencing fast heartbeat and palpitations. Patient states symptoms began 1 hour prior to arrival. Patient was sent by his rock mason apprentice to the ER for further evaluation. Patient states he had an episode of A. fib with RVR in December, where he was admitted to the hospital and told to take sotalol when he experienced his A. fib with palpitations. Patient states he has been taking sotalol since his admission in December. Denies chest pain or shortness of breath. Related Data Allergies Allergy/AdvReac Type Severity Reaction Status Date / Time azithromycin Allergy Mild BLOOD IN Verified 05/18/22 16:48 STOOL Review of Systems Review of Systems: CONSTITUTIONAL: Denies fever, chills, or sweats. EYES: Denies visual changes, redness, or discharge. ENT: Denies rhinorrhea, congestion, sore throat, or otalgia. CARDIOVASCULAR: Reports palpitations RESPIRATORY: Denies cough or dyspnea. GASTROINTESTINAL: Denies abdominal pain, nausea, vomiting, or diarrhea. GENITOURINARY: Denies dysuria or hematuria. SKIN: Denies rash or itching. MUSCULOSKELETAL: Denies back pain, joint pain, or myalgia. NEUROLOGIC: Denies headache, numbness, dizziness, or weakness. PSYCHIATRIC: Denies anxiety or depression. [facility] Past Medical History Medical History Abnormal fasting glucose glucose 104 with hemoglobin A1c 5.7 on 08/17/2021. Glucose 90 in the ER on 08/28/2021. Acute superficial venous thrombosis of lower extremity (~06/04/21) superficial vein thrombosis in the left lesser saphenous vein in ER 06/18/2021 Atrial fibrillation with rapid ventricular response BMI 31.0-31.9,adult BMI 32.0-32.9,adult Bradycardia Chronic low back pain without sciatica Colon cancer screening Cologuard screening was negative on 05/26/2019. Recheck in 3 years. Controlled diabetes mellitus type II without complication Glucose 104 with hemoglobin A1c 5.7 on 08/17/2021. COVID-19 (10/23/21) positive home test on 10/22/2021. Elevated PSA, less than 10 ng/ml PSA 4.4 on 08/12/2020. PSA 5.3 with 19.4% free PSA on 08/17/2021. Frequent epistaxis Gross hematuria Heart palpitations History of cardioversion 1994, 2017 Insomnia Lateral epicondylitis of left elbow Lightheadedness Medication side effects Obesity (BMI 30.0-34.9) Family History Family History Mother Acute myocardial infarction Congestive heart failure Hypertension Father History of blood clots Chronic obstructive pulmonary disease Prostate carcinoma Atrial fibrillation Sibling History of blood clots Cerebrovascular accident Diabetes mellitus Hypertension Social History Social History Social History: Lives independently Recently retired in February 2021 Full code POA: Anny, PCP: Dr. Amari Elizondo Smoking packs per day: 0.5 Smoking cigarettes per day: 10.0 Years smoked: 30 Smoking pack-years: 15.00 Smoking status: Former smoker Alcohol intake: former Drinks per week: 14 Alcohol use details: 1 beer and 1 shot of bourbon daily Substance use: never Substance use type: does not use Lack of Transportation: No Lack of Food: Never True Current Housing: I Have Housing Concerned About Future Housing: No Difficulty Paying Gas/Electric Bills: No Difficulty Paying for Meds: Decline to Answer Currently Unemployed: No Edu[employer]
[2022-05-18 17:17] LABS: Alanine Aminotransferase 32 U/L (6-50); Alkaline Phosphatase 129 U/L (38-126); Anion Gap 9 mmol/L (8-16); Aspartate Amino Transferase 28 U/L (17-59); Blood Urea Nitrogen 15 mg/dL (9-20); Carbon Dioxide 29 mmol/L (22-30); Chloride 101 mmol/L (98-107); Estimated CRCL calculation 97 ml/min; Estimated Glomerular Filt Rate > 60; Glucose 113 mg/dL (65-110); Lipase 71 U/L (23-300); Potassium 4.1 mmol/L (3.4-5.0); Prothrombin Time 12.7 Seconds (11.1-14.7); Sodium 139 mmol/L (137-145)
[2022-05-18 17:18] LABS: Partial Thromboplastin Time 24.5 SECONDS (22.3-36.8)
[2022-05-18 17:28] LABS: Troponin I < 0.012 ng/mL (0.000-0.034)
[2022-05-18] MEDS: dilTIAZem HCl INJ 25 MG/5 ML VIAL 10 MG IV PUSH (17:39)
[2022-05-18] MEDS: dilTIAZem 100 MG/100 ML 100 MG/100 ML BAG IV CONT ×2 (17:39→21:15)
[2022-05-18 17:48] LABS: Basophils Absolute Auto 0.1 K/mm3 (0.0-0.1); Basophils Percent Auto 0.6 % (0.2-1.2); Eosinophils Absolute Auto 0.1 K/mm3 (0-0.3); Eosinophils Percent Auto 0.8 % (0-4.4); Hemoglobin 17.9 g/dL (14.0-18.0); Immature Granulocyte Absolute 0.02 K/mm3 (0.00-0.031); Immature Granulocyte Percent A 0.2 % (0-0.5); Lymphocytes Absolute Auto 1.58 K/mm3 (0.9-3.2); Mean Corpuscular HGB Conc 33.8 g/dl (32-36); Mean Corpuscular Hemoglobin 31.2 pg (26-34); Mean Corpuscular Volume 92.3 fl (80-100); Mean Platelet Volume 10.7 fl (7.4-10.4); Monocytes Absolute Auto 0.8 K/mm3 (0.1-0.6); Neutrophils Absolute Auto 6.3 K/mm3 (1.3-6.7); Neutrophils Percent Auto 71.4 % (45.5-73.1); Platelet Count Result 277 k/mm3 (150-375); Red Blood Count 5.74 M/mm3 (4.6-6.20); Red Cell Distribution Width 12.9 % (11.5-14.5); White Blood Count 8.8 K/mm3 (4.5-10.0)
[2022-05-18] MEDS: SODIUM CHLORIDE 0.9% IV 1,000 ML 999 ML (18:45)
--- NOTE | 2022-05-18 19:19 | PC.NURSE ---
Patient states he took Eliquis around 1600 today. AIR HOIST OPERATOR Shane notified, no dose required at this time.
--- NOTE | 2022-05-18 19:35 | PC.NURSE ---
assumed care. pt resting per stretcher in no distress. pt has no complaints. diltiazem infusing at 10ml/hr. a-fib on the monitor with a rate of 86. vital signs stable.
[2022-05-18] MEDS: AMIODARONE 150 MG/D5W 100 ML 150 MG/100 ML BAG 600 MG IV CONT (19:48)
[2022-05-18 19:52] LABS: Troponin I < 0.012 ng/mL (0.000-0.034)
--- NOTE | 2022-05-18 20:08 | PC.NURSE ---
pt remains in a-fib with a rate of 76 after amiodarone bolus. diltiazem drip increased to 15mg/hr. vital signs stable. will continue to monitor.
[2022-05-18 20:57] LABS: SARS-CoV-2 RNA PCR Negative
[2022-05-18 22:45] LABS: Troponin I < 0.012 ng/mL (0.000-0.034)
[2022-05-19] VITALS (22 sets, daily range): BP systolic 101–128; BP diastolic 63–84; PULSE 70–100; RESP 14–20; TEMP 36.1–36.6; O2SAT 97–100; BMI 31.0
--- NOTE | 2022-05-19 02:06 | PM.IMHP ---
H&P: HPI History of Present Illness Date/Time: 05/18/22 22:00 Chief Complaint: Atrial fibrillation Narrative: 61-year-old male with a past medical history of paroxysmal atrial fibrillation, anxiety and essential hypertension who presented to the ER after he began have symptoms of AFib. The patient has had episodes of paroxysmal AFib since 1994. He has had synchronized cardioversion 1 time in the past. He states that he cannot remember why 1 of his prior lumber piler did not want put him on Cardizem. But he has been tried on sotalol in the past which made him have a sensation of heaviness across his back and shoulders, lightheadedness and fatigue. He also developed bradycardia with sotalol. His most recent episode of AFib was in December 12, 2021. He reported that he has followed up with Dr. Garcia since that time who told him to take Eliquis whenever he had episodes of AFib and to consider taking a dose of sotalol. The patient reports that he was at the hospital today visiting a family member and he became upset about the patient's care since staff has been unable to identify the cause of the patient's illness. During this episode he experiences typical sensation of palpitations in his chest and heart racing. When he checked his pulse it was 170. He stops by the lumber piler's office who confirmed that he was in AFib and directed him to go to the ER. In the ER cardiology was contacted and recommended the patient receive 1 dose IV amiodarone and then the patient was started on a Cardizem drip. On a Cardizem drip patient's heart rate was controlled down in the 80s. However the patient remained in AFib. The patient did take a dose of Eliquis immediately after he started having symptoms of AFib around 16:00. He denies any significant chest pain or shortness of breath. He reports that he used to drink alcohol quite heavily up to 6 shots of bourbon a day and or a several beers a day. He reports that since his hospitalization in December he is only drinking 1 or 2 alcoholic beverages rarely. He only drinks 1 cup of caffeine a day. He reports that he never sleeps well and his does report that he snores. He does report that he does not sleep very well and complains of insomnia. He has never had a sleep study. He does feel fatigued sometimes during the day. He also reports frequent sensation of sinus congestion is frontal sinuses in sometimes in his maxillary sinuses. He reports the sensation of fullness in his ears. He reports a cell Dr. Crabtree about 4-5 weeks ago due at 2 epistaxis. He was not started on antibiotics at that time. He has not been any fevers or chills or purulent nasal drainage. He denies any sore throat. He has not been taking any [id number] cold medications. He denies any paroxysmal nocturnal dyspnea or orthopnea. He does have history of BPH but denies any significant symptoms. He would like to avoid taking Eliquis chronically and he has had multiple episodes of epistaxis over the last couple of years and has had prior episodes of gross hematuria. Review of Systems Review of Systems: 12 systems were reviewed with pertinent positives and negatives per HPI. Except as documented in the HPI, all other systems were reviewed and are negative. [facility] Past Medical History Medical History (Updated 05/19/22 @ 06:18 by Anabell Sal, DO) Abnormal fasting glucose glucose 104 with hemoglobin A1c 5.7 on 08/17/2021. Glucose 90 in the ER on 08/28/2021. Acute superficial venous thrombosis of lower extremity (~06/04/21) superficial vein thrombosis in the left lesser saphenous vein in ER 06/18/2021 Chronic low back pain without sciatica Colon cancer screening Cologuard screening was negative on 05/26/2019. Recheck in 3 years. COVID-19 (10/23/21) positive home test on 10/22/2021. Elevated PSA, less than 10 ng/ml PSA 4.4 on 08/12/2020. PSA 5.3 with 19.4% free PSA on 08/17/2021. Frequent epistaxis Gross hematuria Heart p
[2022-05-19] MEDS: APIXABAN 5 MG TABLET PO ×2 (05:26→18:44)
[2022-05-19] MEDS: dilTIAZem 100 MG/100 ML 100 MG/100 ML BAG IV CONT (05:27)
--- NOTE | 2022-05-19 06:00 | ECHO_ITS ---
Patient Info Name: Marshall Thomson Age: 61 years : 1960 Gender: Male Ht: 70 in Wt: 218 lbs BSA: 2.24 m2 HR: 87 bpm BP: 114 / 84 mmHg Heart Rhythm: Atrial Fibrillation Technical Quality: Good Exam Date: 05/19/2022 8:30 AM Exam Location: [facility] Patient Status: Inpatient Admit Date: 05/18/2022 Staff Ordering Physician: Zak Jones APRN Route Agent: Lupe Clark RD Attending Provider: Anabell Sal DO Referring Physician: Robert FARFAN; Exam Type: CA echo doppler color flow Study Info Indications I48.1 - Persistent atrial fibrillation Complete two-dimensional, color flow and Doppler transthoracic echocardiogram is performed. Summary 1. Complete two-dimensional, color flow and Doppler transthoracic echocardiogram is performed. 2. Normal LV size, mild LVH, normal LV systolic function with variable contractility due to atrial fibrillation, ejection fraction 65-70%, indeterminate diastolic function. No significant valvular abnormality. Unable to assess RVSP due to inadequate TR jet. Atrial fibrillation. Left Ventricle Left ventricular chamber dimension is normal. Left ventricular systolic function is normal, estimated at 65-70%. There is mildly increased left ventricular wall thickness. The left ventricular diastolic function is indeterminate. Left Atria Left atrial chamber dimension is normal. Right Atria Right atrial chamber dimension is normal. Aortic Valve The aortic valve is normal. There is no aortic valve stenosis. Pulmonic Valve The pulmonic valve is not well visualized. Mitral Valve The mitral valve has normal leaflets. Pericardium/Pleural The pericardium appears epicardial fat pad. Aorta The aortic root size at the sinus of Valsalva is normal. Left Ventricular Outflow Tract Name Value Normal LVOT 2D LVOT Diameter 2.2 cm LVOT Doppler LVOT Peak Gradient 2 mmHg LVOT Mean Gradient 1 mmHg LVOT VTI 17 cm LVOT VTI/AV VTI Ratio 1.0 LVOT Stroke Volume 65 ml LVOT CO 5.6 l/min LVOT CI 2.5 l/min/m2 Pulmonic Valve Name Value Normal PV Doppler PV Peak Gradient 4 mmHg Aortic Valve Name Value Normal AV Doppler AV Peak Velocity 121 cm/s AV Peak Gradient 5 mmHg AV Mean Gradient 3 mmHg AV VTI 18 cm AV Area (
[2022-05-19] MEDS: CHOLECALCIFEROL 1,000 UNITS TABLET 2000 UNITS PO (08:17)
[2022-05-19] MEDS: CYANOCOBALAMIN 1,000 MCG TABLET 1000 MCG PO (08:17)
--- NOTE | 2022-05-19 11:55 | PM.IMPN ---
Progress Note: A&P Assessment and Plan (1) Atrial fibrillation with rapid ventricular response: Code(s): I48.91 - Unspecified atrial fibrillation Status: Acute Assessment and Plan: Paroxysmal AFib with rapid ventricular response. Rate is improved after amiodarone bolus and Cardizem drip. Cardiology has been consulted. Patient would benefit from long-term rate or rhythm control medications. In the past he has not tolerated sotalol. He cannot remember why Cardizem was discontinued on him in the past. Will defer further rate/rhythm management to Cardiology Service. Patient has been restarted on Eliquis. 05/19 began p.o. metoprolol 25 mg every 6 hours and discontinue Cardizem drip. Continue p.o. Eliquis. (2) Snoring: Code(s): R06.83 - Snoring Status: Acute Assessment and Plan: With the patient's history of obesity and snoring and paroxysmal AFib patient will benefit from outpatient polysomnogram to rule out obstructive sleep apnea. 05/19 ApneaLink Plan Patient has been admitted as observation status. Subjective Date/time seen: 05/19/22 11:55 Interval history: Follow-up recurrent atrial fibrillation with rapid ventricular rate Tolerated metoprolol in the past took for PVCs. Did not tolerate sotalol in the past. Intake control his rhythm however. Does not take long-term Eliquis due to history of nose bleeds. However ENT Dr. Bosch recently cauterized bleeding vessels. He is now willing to reconsider taking metoprolol for rate control and Eliquis for anticoagulation. Only complaint today is palpitations. No chest pain shortness of breath. No GI or complaints. No abnormal bleeding. No weakness or numbness. No prior history of stroke. No prior history of GI bleeding. Review of Systems Review of Systems: All systems reviewed & are unremarkable except as noted in HPI and below Exam Narrative: HEENT: EOMI, PERRL, sclerae nonicteric, pharyngeal mucosa pink and intact NECK: No JVD CHEST: Clear to auscultation. Normal effort. HEART: NL S1/S2, irregular and mildly tachycardic, no murmur ABDOMEN: BS+, soft, nontender, no mass, no bruits EXTREMITIES: No cyanosis, edema, or clubbing NEUROLOGIC: CN intact and symmetric to inspection. MUSCULOSKELETAL: Tone and strength symmetric. PSYCH: Alert. Oriented to person, place, and time. Objective Data Vital Signs Vital Signs: Vital Signs - 24 hr 05/18/22 16:35 05/18/22 17:39 05/18/22 16:58 Temperature 97.9 F Pulse Rate 117 H 145 H 166 H Respiratory Rate 18 11 L Blood Pressure 139/103 H 142/105 H Pulse Oximetry 100 100 Oxygen Delivery Room Air 05/18/22 17:00 05/18/22 17:01 05/18/22 17:02 Temperature Pulse Rate 137 H 125 H 127 H Respiratory Rate 15 16 19 Blood Pressure 139/98 H 141/92 H Pulse Oximetry 99 98 97 Oxygen Delivery 05/18/22 17:15 05/18/22 17:16 05/18/22 17:32 Temperature Pulse Rate 141 H 143 H 122 H Respiratory Rate 15 16 18 Blood Pressure 142/116 H Pulse Oximetry 98 98 99 Oxygen Delivery 05/18/22 17:34 05/18/22 17:39 05/18/22 17:45 Temperature Pulse Rate 125 H 150 H 99 Respiratory Rate 24 H 22 H 16 Blood Pressure 132/100 H 142/102 H Pulse Oximetry 100 99 Oxygen Delivery 05/18/22 17:46 05/18/22 18:00 05/18/22 18:01 Temperature Pulse Rate 104 H 91 97 Respiratory Rate 27 H 18 22 H Blood Pressure 113/93 H 122/78 Pulse Oximetry 98 97 97 Oxygen Delivery 05/18/22 18:29 05/18/22 18:29 05/18/22 19:48 Temperature Pulse Rate 109 H 106 H 95 Respiratory Rate 20 Blood Pressure 122/78 122/78 107/87 Pulse Oximetry 99 Oxygen Delivery 05/18/22 20:08 05/18/22 19:59 05/18/22 20:44 Temperature Pulse Rate 78 78 85 Respiratory Rate Blood Pressure 123/85 123/85 115/84 Pulse Oximetry Oxygen Delivery 05/18/22 21:15 05/19/22 01:56 05/19/22 04:28 Temperature Pulse Rate 80 70 80 Respiratory Rate 18 17 Blood Pressure 97/79 L 10
--- NOTE | 2022-05-19 12:23 | PM.CNCAR ---
Assessment and Plan Assessment and plan (1) Atrial fibrillation with rapid ventricular response: Code(s): I48.91 - Unspecified atrial fibrillation Status: Acute Assessment and Plan: 61-year-old male with history of paroxysmal atrial fibrillation; hypertension, history of excessive alcohol consumption. Patient admitted to the hospital with palpitations, found to be in recurrent atrial fibrillation with RVR. Heart rates have improved with IV diltiazem. Patient has not been compliant with anticoagulation with apixaban. -spoke at length with the patient about importance of medication compliance including anticoagulation for CVA prophylaxis. He verbalized understanding. Resume apixaban 5 mg p.o. b.i.d.. -heart rates have improved. Bridge diltiazem to metoprolol tartrate 12.5 mg p.o. b.i.d., dose to be optimized as necessary. Initiate IV amiodarone to see if patient converts to sinus rhythm. He has history of sotalol induced bradycardia and intolerance to the sotalol due to dizziness and fatigue. Patient is willing to try dronedarone if/when he converts to sinus rhythm to help maintain sinus rhythm. I spoke at length with the patient about option of referral to the electrophysiology. He is not keen on radiofrequency ablation treatment, however is interested in an opinion from the distance education faculty liaison which can be done as an outpatient. -echocardiogram with Doppler is pending to rule out structural heart disease. -check thyroid panel -continue to monitor on telemetry. History of Present Illness History of Present Illness Consult date/time: 05/19/22 12:23 Reason For Visit: A-Fib w/RVR Narrative: DATE OF CONSULT: 05/19/2022 REASON FOR CONSULT: Atrial fibrillation REQUESTING PHYSICIAN:Elia Cherry MD CHIEF COMPLAINT: Palpitations HPI: 61-year-old male with history of paroxysmal atrial fibrillation; hypertension, history of excessive alcohol consumption. Patient presented to [facility] Emergency Room on 05/18/2022 with complaints of palpitation that started about an hour before the presentation. He was found to be in atrial fibrillation with RVR. EKG on my personal evaluation showed atrial fibrillation with RVR, ventricular rate 145 beats per minute. Patient was initiated on IV diltiazem and his heart rate has improved. On telemetry, he has remained in atrial fibrillation. Serial troponins negative. Chest x-ray unremarkable. Patient states that he was diagnosed with atrial fibrillation in 1994, and at that time had DC cardioversion. He states he had repeat cardioversion in May 2018 in [place]. Over the years, he did well without clinical recurrence of atrial fibrillation until December 2021 when he had atrial fibrillation with RVR. Based on the notes, at that time, patient was initiated on sotalol during hospitalization for rhythm control, however, it was discontinued due to bradycardia and patient's symptoms of generalized fatigue and weakness. Patient has not been fully compliant with anticoagulation. At baseline, he denies symptoms of chest pain, shortness of breath, dizziness syncope. He states that he used to drink eventually before December 2021. Review of Systems Review of Systems: General: Negative for fever, chills, fatigue Psychological: Negative for anxiety, depression Ophthalmic: negative for loss of vision ENT: Negative for epistaxis, headaches Allergy and immunology: Negative for hives, nasal congestion Hematologic and lymphatic: Negative for overt bleeding problems Endocrine: Negative for hot flashes, palpitations Respiratory: Negative for cough, hemoptysis Cardiovascular: Negative for chest pain, positive for palpitations Gastrointestinal: Negative for abdominal pain, nausea, vomiting, hematochezia Musculoskeletal: Negative for myalgia, joint pains Neurological: Negative for weakness Dermatological: Negative for rash, skin discoloration PMFSH Past Medical History Medical
[2022-05-19] MEDS: AMIODARONE 150 MG/D5W 100 ML 150 MG/100 ML BAG 600 MG IV CONT (13:16)
[2022-05-19] MEDS: LORazepam (*CRX) 0.5 MG TABLET PO (13:25)
[2022-05-19] MEDS: AMIODARONE 360 MG/D5W 200 ML 360 MG/200 ML BAG 33.33 MG IV CONT (13:29)
[2022-05-19] MEDS: METOPROLOL TARTRATE 12.5 MG TABLET PO ×2 (14:19→22:38)
[2022-05-19] MEDS: AMIODARONE 360 MG/D5W 200 ML 360 MG/200 ML BAG 16.67 MG IV CONT (18:18)
[2022-05-20] VITALS (17 sets, daily range): BP systolic 113–138; BP diastolic 72–79; PULSE 62–77; RESP 16–24; TEMP 36.3–36.9; O2SAT 99–100
--- NOTE | 2022-05-20 05:44 | ECG_ITS ---
Measurements Intervals [place] Rate: 69 P: 26 PA: 187 QRS: -17 QRSD: 84 T: 23 QT: 356 QTc: 382 Interpretive Statements SINUS RHYTHM LOW QRS VOLTAGE IN PRECORDIAL LEADS BASELINE ARTIFACT- I, II, AVR, AVL, V4-V6 BORDERLINE ECG COMPARED TO ECG 05/18/2022 16:38:06 SINUS RHYTHM NOW PRESENT Electronically Signed On 05-20-2022 8:05:37 [employer]MULA BOTTLER by Luke Claudio D.O.
[2022-05-20] MEDS: AMIODARONE 360 MG/D5W 200 ML 360 MG/200 ML BAG 16.67 MG IV CONT (05:52)
--- NOTE | 2022-05-20 08:48 | ECG_ITS ---
Measurements Intervals [place] Rate: 75 P: 24 CT: 188 QRS: -22 QRSD: 90 T: 20 QT: 352 QTc: 394 Interpretive Statements SINUS RHYTHM LOW QRS VOLTAGE IN PRECORDIAL LEADS CONSIDER INFERIOR INFARCT, AGE INDETERMINATE ABNORMAL ECG COMPARED TO ECG 05/20/2022 06:06:49 NO SIGNIFICANT CHANGES Electronically Signed On 05-20-2022 15:01:12 [employer]ANT [employer] FIELD OPERATOR by Luke Claudio D.O.
[2022-05-20] MEDS: APIXABAN 5 MG TABLET PO ×2 (08:58→20:24)
[2022-05-20] MEDS: CYANOCOBALAMIN 1,000 MCG TABLET 1000 MCG PO (08:59)
[2022-05-20] MEDS: METOPROLOL TARTRATE 12.5 MG TABLET PO ×2 (08:59→20:24)
--- NOTE | 2022-05-20 09:54 | PM.PNCARD ---
Progress Note: A&P Assessment and Plan (1) Atrial fibrillation with rapid ventricular response: Code(s): I48.91 - Unspecified atrial fibrillation Status: Acute Assessment and Plan: 61-year-old male with history of paroxysmal atrial fibrillation; hypertension, history of excessive alcohol consumption. Patient admitted to the hospital with palpitations, found to be in recurrent atrial fibrillation with RVR. Heart rates improved with IV diltiazem which was later switched to IV amiodarone. -converted to sinus rhythm with IV amiodarone. -DC IV amiodarone. Will start antiarrhythmic treatment with dronedarone 400 mg p.o. b.i.d.. Patient has previously not been able to tolerate sotalol. Continue low-dose metoprolol tartrate 12.5 mg p.o. b.i.d. I spoke at length with the patient about option of referral to the electrophysiology. He is not keen on radiofrequency ablation treatment, however is interested in an opinion from the direct marketing specialist which can be done as an outpatient. -patient was strongly advised to be compliant with anticoagulation with apixaban for CVA prophylaxis. -patient was updated about echocardiogram which showed normal LV systolic function without any significant valvular abnormalities. -TSH within normal limits -okay to discharge from cardiac standpoint. Outpatient Cardiology follow-up with primary filemaker developer. Subjective Date/time seen: 05/20/22 09:54 Interval history: Date of service: 05/20/2022 Interval history: Patient is feeling better today. Denies any chest pain, shortness of breath, palpitations, dizziness or syncope. He was initiated on IV amiodarone yesterday and has converted to sinus rhythm. On telemetry, he is currently in sinus rhythm. Exam Narrative: PHYSICAL EXAMINATION: GENERAL: Alert, oriented, no acute distress MENTAL STATUS: affect appropriate to mood EYES: Extraocular movements intact, no pallor EARS: External ears appear normal, hearing grossly normal NOSE: Normal and patent, no discharge MOUTH: Mucous membranes moist, tongue normal NECK: Supple, no JVD CHEST: Good respiratory effort, clear to auscultation HEART: Normal rate, regular rhythm at present ABDOMEN: Soft, nontender NEUROLOGICAL: Alert, oriented, normal speech, no gross motor deficits MUSCULOSKELETAL: No major deformity, no amputation EXTREMITIES: No pedal edema, no clubbing, no cyanosis SKIN: no rash on the exposed area, no cyanosis PSYCHIATRIC: Normal mood, appropriate affect Objective Data Vital Signs Vital Signs: Vital Signs - 24 hr 05/19/22 10:35 05/19/22 12:00 05/19/22 13:16 Temperature 36.6 C Pulse Rate 100 98 93 Respiratory Rate 20 Blood Pressure 127/78 101/69 Pulse Oximetry 98 05/19/22 13:29 05/19/22 14:19 05/19/22 12:00 Temperature Pulse Rate 94 92 94 Respiratory Rate Blood Pressure 118/78 Pulse Oximetry 05/19/22 14:00 05/19/22 16:00 05/19/22 16:00 Temperature 36.5 C Pulse Rate 100 92 88 Respiratory Rate 14 Blood Pressure 105/68 Pulse Oximetry 99 05/19/22 18:18 05/19/22 18:00 05/19/22 20:00 Temperature 36.4 C Pulse Rate 100 88 97 Respiratory Rate 20 Blood Pressure 127/77 113/79 Pulse Oximetry 100 05/19/22 22:38 05/19/22 23:21 05/19/22 20:00 Temperature 36.1 C L Pulse Rate 93 100 97 Respiratory Rate 20 Blood Pressure 128/82 Pulse Oximetry 100 05/19/22 22:00 05/20/22 00:00 05/20/22 02:00 Temperature Pulse Rate 96 63 62 Respiratory Rate Blood Pressure Pulse Oximetry 05/19/22 23:28 05/20/22 05:52 05/20/22 04:00 Temperature 36.6 C Pulse Rate 73 71 73 Respiratory Rate 20 Blood Pressure 123/77 Pulse Oximetry 100 05/20/22 04:00 05/20/22 06:00 05/20/22 08:59 Temperature Pulse Rate 62 71 75 Respiratory Rate Blood Pressure Pulse Oximetry 05/20/22 08:00 Temperature 36.8 C Pulse Rate 66 Respiratory Rate 16 Blood Pressure 114/72 Pulse Oximetr
--- NOTE | 2022-05-20 10:10 | PM.IMPN ---
Progress Note: A&P Assessment and Plan (1) Atrial fibrillation with rapid ventricular response: Code(s): I48.91 - Unspecified atrial fibrillation Status: Acute Assessment and Plan: Patient currently in sinus rhythm Cardiology consulted amiodarone drip will be DC patient will start p.o. medication dronedarone 400 mg b.i.d. Continue metoprolol and Eliquis Patient will follow-up with the electro physicist as outpatient Echo indicates a normal LV systolic function without any significant valvular abnormalities Can discharge patient tomorrow once he starts p.o. medication (2) Snoring: Code(s): R06.83 - Snoring Status: Acute Assessment and Plan: Sleep study completed overnight (3) Chronic anxiety: Code(s): F41.9 - Anxiety disorder, unspecified Status: Acute Assessment and Plan: Continue Xanax (4) Essential (primary) hypertension: Code(s): I10 - Essential (primary) hypertension Status: Acute Assessment and Plan: Stable Continue lisinopril and metoprolol Vital signs as ordered Will adjust medication as needed Subjective Date/time seen: 05/20/22 10:10 Interval history: Date of service: 05/20/2022 Patient notes that he slept well overnight due to a sleeping aid used to complete his sleep study. Patient denies any palpitation shortness of breath or chest pains. Patient notes that he has a chronic history of AFib RVR and usually it takes about 2 days for him to cover he has no complaints at this time at the time of our assessment patient was on amiodarone drip. The patient denies SOB, CP, palpitation, extremity numbness, lightheadedness, dizziness, constipation, diarrhea, chills, or fever. Review of Systems Review of Systems: A 14 organ system Review of Systems was performed and pertinent positives included in the HPI, otherwise remaining ROS is negative. Exam Narrative: PHYSICAL EXAMINATION: GENERAL: Alert, oriented, no acute distress MENTAL STATUS: affect appropriate to mood EYES: Extraocular movements intact, no pallor EARS: External ears appear normal, hearing grossly normal NOSE: Normal and patent, no discharge MOUTH: Mucous membranes moist, tongue normal NECK: Supple, no JVD CHEST: Good respiratory effort, clear to auscultation HEART: Normal rate, irregular rhythm ABDOMEN: Soft, nontender NEUROLOGICAL: Alert, oriented, normal speech, no gross motor deficits MUSCULOSKELETAL: No major deformity, no amputation EXTREMITIES: No pedal edema, no clubbing, no cyanosis SKIN: no rash on the exposed area, no cyanosis PSYCHIATRIC: Normal mood, appropriate affect Const: Other: No acute distress, obese, appears stated age HENMT: Other: Head is normocephalic atraumatic, mucous membranes are moist, no oral pharyngeal erythema, good dentition, moderate wax in the right ear, dull appearance to eardrum with appropriate light reflex in the left ear, nares are patent and pink, no drainage Eyes: Other: Pupils are equal and reactive, no scleral icterus, no conjunctival pallor Neck: Other: No anterior cervical lymphadenopathy, large neck circumference Resp: Other: Clear to auscultation bilaterally, no increased work of breathing Cardio: Other: Irregularly irregular, rate controlled, 2+ bilateral radial pedal pulses, no murmur GI: Other: Soft, nontender, nondistended, positive bowel sounds Back/Spine/Pelvis: Other: Normal spinal alignment Skin: Other: Tanned, non jaundice, no pallor Neuro: Other: Alert oriented, speech is clear, no facial asymmetry, no localizing neurologic deficits noted during the course of casual conversation Extrem: Other: No clubbing, cyanosis or edema Psych: Other: Appropriate mood and affect, pleasant and cooperative, judgment and insight intact Objective Data Vital Signs Vital Signs: Vital Signs - 24 hr 05/19/22 10:35 05/19/22 12:00 05/19/22 13:16 Temperature 97.9
[2022-05-20] MEDS: CHOLECALCIFEROL 1,000 UNITS TABLET 2000 UNITS PO (11:09)
[2022-05-20] MEDS: DRONEDARONE HCL 400 MG TABLET PO ×2 (11:31→18:22)
[2022-05-21] VITALS (8 sets, daily range): BP systolic 134–144; BP diastolic 81–85; PULSE 62–79; RESP 18–20; TEMP 36.2–36.4; O2SAT 98–100
[2022-05-21] MEDS: ALPRAZolam (*CRX) 0.25 MG TABLET PO (03:01)
--- NOTE | 2022-05-21 09:35 | PM.PNCARD ---
Progress Note: A&P Assessment and Plan (1) Atrial fibrillation with rapid ventricular response: Code(s): I48.91 - Unspecified atrial fibrillation Status: Acute Assessment and Plan: 61-year-old male with history of paroxysmal atrial fibrillation; hypertension, history of excessive alcohol consumption. Patient admitted to the hospital with palpitations, found to be in recurrent atrial fibrillation with RVR. Heart rates improved with IV diltiazem which was later switched to IV amiodarone. -converted to sinus rhythm with IV amiodarone. -Started on dronedarone for maintenance of sinus rhythm -Will stop low dose metoprolol because of mild bradycardia overnight -Continue a/c with apixaban -okay to discharge from cardiac standpoint. Outpatient Cardiology follow-up with primary medical imaging tech. Subjective Date/time seen: 05/21/22 09:35 Cardiology follow up for atrial fibrillation Interval history: Had an episode of dizziness last night while lying in bed that resolved spontaneously. Feels like his arms and legs are heavy. Currently not dizzy, no palpitations, chest pain, shortness of breath. Exam Const: General: comfortable, no acute distress, alert and awake Orientation/consciousness: patient oriented x3 HENMT: Head: normal to inspection Eyes: General: appearance normal, both eyes and all related structures Pupils: Equal, round and reactive pupils present Neck: Neck: normal visual inspection, supple and no JVD Carotids: normal carotid upstroke Resp: Effort & Inspection: normal respiratory effort Auscultation: clear to auscultation bilaterally Cardio: Rate: regular rate Rhythm: regular rhythm Heart sounds: S1 normal heart sound present, S2 normal heart sound present and no murmurs GI: Auscultation: normal bowel sounds Skin: General skin exam: normal color Neuro: General: patient oriented x3 Cranial nerves: Yes Equal, round and reactive pupils present Extrem: General: normal to inspection Psych: Appearance: grossly normal Mental Status: mental status grossly normal Objective Data Vital Signs Vital Signs: Vital Signs - 24 hr 05/20/22 11:00 05/20/22 11:00 05/20/22 10:00 Temperature Pulse Rate 75 75 70 Respiratory Rate 20 Blood Pressure 113/74 113/74 Pulse Oximetry 100 Oxygen Delivery 05/20/22 12:00 05/20/22 11:31 05/20/22 12:00 Temperature 36.9 C Pulse Rate 71 75 68 Respiratory Rate 16 Blood Pressure 138/78 Pulse Oximetry 100 Oxygen Delivery 05/20/22 14:00 05/20/22 16:00 05/20/22 16:00 Temperature Pulse Rate 71 77 Respiratory Rate Blood Pressure Pulse Oximetry 100 Oxygen Delivery Room Air 05/20/22 16:00 05/20/22 18:22 05/20/22 20:00 Temperature 36.8 C 36.3 C L Pulse Rate 70 77 73 Respiratory Rate 24 H 20 Blood Pressure 122/78 132/79 Pulse Oximetry 99 100 Oxygen Delivery 05/20/22 20:24 05/20/22 20:00 05/21/22 00:00 Temperature Pulse Rate 69 Respiratory Rate Blood Pressure Pulse Oximetry Oxygen Delivery Room Air Room Air 05/20/22 20:00 05/20/22 22:00 05/21/22 00:00 Temperature Pulse Rate 73 64 62 Respiratory Rate Blood Pressure Pulse Oximetry Oxygen Delivery 05/21/22 00:00 05/21/22 03:59 05/21/22 03:15 Temperature 36.4 C L 36.4 C Pulse Rate 62 68 Respiratory Rate 20 20 Blood Pressure 144/85 H 134/84 Pulse Oximetry 100 100 Oxygen Delivery Room Air 05/21/22 02:00 05/21/22 04:00 05/21/22 05:51 Temperature Pulse Rate 63 62 62 Respiratory Rate Blood Pressure Pulse Oximetry Oxygen Delivery 05/21/22 08:00 Temperature 36.2 C L Pulse Rate 72 Respiratory Rate 18 Blood Pressure 134/81 Pulse Oximetry 98 Oxygen Delivery Intake/Output Intake/Output: Intake & Output 05/18/22 05/19/22 05/20/22 05/21/22 23:59 23:59 23:59 23:59 Intake Total 500 1055 1665 600 Output Total 700 1775 250 Balance 500 355 -110 350 Meds/Results Me
--- NOTE | 2022-05-21 09:53 | PM.DS ---
DS: Admitting Diagnosis Discharge Date 05/21/2022 Admitting Diagnosis Atrial fibrillation with rapid ventricular response DS: Discharge Diagnosis Discharge Diagnosis (1) Atrial fibrillation with rapid ventricular response: Code(s): I48.91 - Unspecified atrial fibrillation Status: Acute Assessment and Plan: Patient currently in sinus rhythm patient has had good control after being started on Dronedarone. Continue Eliquis on discharge in discontinue Lopressor. Patient To follow-up with cardiology as outpatient. Echo indicates a normal LV systolic function without any significant valvular abnormalities (2) Snoring: Code(s): R06.83 - Snoring Status: Acute Assessment and Plan: Patient's apnea link was performed and was within normal limits. (3) Chronic anxiety: Code(s): F41.9 - Anxiety disorder, unspecified Status: Acute Assessment and Plan: Continue Xanax (4) Essential (primary) hypertension: Code(s): I10 - Essential (primary) hypertension Status: Acute Assessment and Plan: Stable Continue lisinopril DS: Summary Hospital Course Reason for hospitalization: Atrial fibrillation Hospital Course: this 61-year-old male patient with significant past medical history of atrial fib, previous cardioversion in 1994 and 2017, pre diabetes, COVID-19 in October 2021, chronic low back pain, DVT who presented to the emergency on May 19, 2022 with complaints of pain mainly he was back in atrial fibrillation. He is a patient of Dr. Garcia who has previously tried sotalol for management and has been unable to tolerate side effects. He takes Eliquis for anticoagulation. His rate has been controlled to this point with metoprolol. In the emergency room patient is pulseless as high as 170. He was initially started on a Cardizem drip and amiodarone with subsequent conversion to sinus rhythm. These have subsequently been discontinued and patient has been started on Multaq for his rhythm management. As patient was mildly bradycardic with 1 episode overnight to a rate of 48 beats per minute, the pt's Lopressor is being discontinued at this time after consulting with Cardiology. Pt. is stable for discharge to home at this time. Status at Discharge Functional status at discharge: independent ambulation Overall status at discharge: patient is back to baseline Time Spent with Patient Time attestation: Total time spent providing and/or coordinating discharge services: Time spent: Greater than 30 minutes Specific discharge activities: discharge instructions, follow-up instructions and medication education Exam Narrative: PHYSICAL EXAMINATION: GENERAL: Alert, oriented, no acute distress MENTAL STATUS: appears anxious NOSE: mild congestion MOUTH: Mucous membranes moist, tongue normal NECK: Supple, no JVD CHEST: Good respiratory effort, clear to auscultation HEART: Normal rate, regular rhythm ABDOMEN: Soft, nontender NEUROLOGICAL: Alert, oriented, normal speech, no gross motor deficits MUSCULOSKELETAL: No major deformity, no amputation EXTREMITIES: No pedal edema, no clubbing, no cyanosis SKIN: no rash on the exposed area, no cyanosis PSYCHIATRIC: Normal mood, appropriate affect DS: Data Data Completed and Pending Completed studies during hospitalization: ITS Impressions Chest X-Ray 05/18/22 17:39 IMPRESSION: 1: NO ACUTE CARDIOPULMONARY DISEASE. Pending studies at discharge: none Procedures/Treatments: ITS Impressions Chest X-Ray 05/18/22 17:39 IMPRESSION: 1: NO ACUTE CARDIOPULMONARY DISEASE. echo result pending Discharge Plan Discharge Attending physician on discharge: Kandice Basilio Consulting providers: Gonzales Hernandez Discharging Clinician: Kandice Basilio Anticipated Discharge Date/Time: 05/21/22 10:05 Patient Disposition: Home, Self-Care Activity: as to
[2022-05-21] MEDS: CHOLECALCIFEROL 1,000 UNITS TABLET 2000 UNITS PO (10:04)
[2022-05-21] MEDS: DRONEDARONE HCL 400 MG TABLET PO (10:05)
[2022-05-21] MEDS: CYANOCOBALAMIN 1,000 MCG TABLET 1000 MCG PO (10:05)
[2022-05-21] MEDS: APIXABAN 5 MG TABLET PO (10:05)
== END 2022-05-21 11:40 | disposition home or self-care (01) ==
LOC: ANHED 20:40 → ANH3MEDSUR 23:31 → ANHIMU 05-19 04:10
PROVIDERS: Emergency Medicine; Internal Medicine Cardiovascular Disease; Admitting Provider Internal Medicine; Emergency Provider Nurse Practitioner Family; PCP Family Medicine; Visit Provider Nurse Practitioner Adult Health
DX: I48.91 Unspecified atrial fibrillation (principal); R06.83 Snoring; F41.9 Anxiety disorder, unspecified; I10 Essential (primary) hypertension; E11.9 Type 2 diabetes mellitus without complications; Z86.718 Personal history of other venous thrombosis and embolism; G89.29 Other chronic pain; M54.9 Dorsalgia, unspecified; Z86.16 Personal history of COVID-19; Z20.822 Contact with and (suspected) exposure to COVID-19; R94.31 Abnormal electrocardiogram [ECG] [EKG]; R97.20 Elevated prostate specific antigen [PSA]; G47.00 Insomnia, unspecified; F10.90 Alcohol use, unspecified, uncomplicated; E66.9 Obesity, unspecified; Z68.31 Body mass index [BMI] 31.0-31.9, adult; Z87.891 Personal history of nicotine dependence; Z86.79 Personal history of other diseases of the circulatory system; Z79.01 Long term (current) use of anticoagulants; Z79.899 Other long term (current) drug therapy; Z82.49 Family history of ischemic heart disease and other diseases of the circulatory system; Z83.2 Family history of diseases of the blood and blood-forming organs and certain disorders involving the immune mechanism
CPT/HCPCS: 36415; 71046; 80053; 83690; 84443; 84484; 85025; 85610; 85730; 93005; 93306; 96365; 96366; 96375; 96376; 99285; A9270; G0378; J0282; J7030; U0003; U0005

== ENCOUNTER 2024-04-05 13:36 | Emergency (ER) | payer MEDICARE, SELFPAY ==
[2024-04-05] VITALS (47 sets, daily range): BP systolic 107–160; BP diastolic 73–103; PULSE 86–196; RESP 12–20; TEMP 36.6; O2SAT 93–99
--- NOTE | ~2024-04-05 | XR_ITS ---
EXAMINATION: XR chest 1V portable DATE: 04/05/2024 14:01 INDICATION: Arrhythmia with atrial fibrillation TECHNIQUE: frontal view of the chest was obtained. COMPARISON: Chest radiograph dated 05/18/2022 FINDINGS: Calcified nodule left upper lung zone consistent with old granulomatous disease. No other airspace op acities, pulmonary edema, pleural effusion or pneumothorax. Heart size is normal. Tortuous thoracic a cecilia. IMPRESSION: 1. No acute cardiopulmonary disease. Reviewed, dictated and finalized at location A. 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
--- NOTE | 2024-04-05 13:38 | ECG_ITS ---
Test Date: 2024-04-05 13:46:43 Measurements Intervals [place] Rate: 175 P: 0 [place]: 0 QRS: -6 QRSD: 76 T: 43 QT: 245 QTc: 418 Interpretive Statements ATRIAL FIBRILLATION WITH RAPID VENTRICULAR RESPONSE BORDERLINE ST ABNORMALITY- ANTEROLATERAL LEADS BASELINE ARTIFACT- I, II, III, AVR, AVL, AVF ABNORMAL ECG No previous ECG available for comparison Electronically Signed On 04-05-2024 18:49:56 PICKLING OPERATOR by Luke Claudio D.O.
--- NOTE | 2024-04-05 13:39 | ED.ARRPALP ---
HPI - Arrhythmia/Palpitations General Chief Complaint: Arrhythmia/Palpitations Stated Complaint: rapid heart rate Time Seen by Provider: 04/05/24 13:37 Source: patient and family Mode of arrival: ambulatory Limitations: no limitations History of Present Illness HPI narrative: Patient is a 63-year-old male with known history of AFib on Eliquis and anti arrhythmic. He is here with 3 hours of palpitations. He knows when he is in AFib rapid. This has not happened for many years. He sees a middle school technology teacher. patient was drinking cold orange juice and on the last drink this started of palpitations. MD complaint: rapid heart beat, heart racing and palpitations Onset (ago): hour(s) (3) Duration: constant Severity: moderate Context: occurred during rest Arrhythmia history: atrial fibrillation Associated symptoms: denies other symptoms Treatments prior to arrival: other ( patient is on anti arrhythmic and Eliquis) Related Data Home Medications Medication Instructions Recorded Confirmed cyanocobalamin (vitamin B-12) 1,000 mcg PO DAILY 05/19/22 04/05/24 1,000 mcg tablet (Vitamin B-12) cholecalciferol (vitamin D3) 50 2,000 unit PO DAILY 06/04/22 04/05/24 mcg (2,000 unit) tablet (Vitamin D3) finasteride 5 mg tablet 5 mg PO DAILY 04/05/24 04/05/24 Allergies Allergy/AdvReac Type Severity Reaction Status Date / Time azithromycin AdvReac Mild BLOOD IN Verified 04/05/24 13:59 STOOL Review of Systems Review of Systems: All systems reviewed & are unremarkable except as noted in HPI and below Constitutional: Constitutional: Reports no additional constitutional complaints Eyes: Eyes: Reports no additional eye complaints ENT: Reports system reviewed and no additional complaints, except as documented Cardiovascular: Cardiovascular: Reports no additional cardiovascular complaints Respiratory: Respiratory: Reports no additional respiratory complaints Gastrointestinal: Gastrointestinal: Reports no additional gastrointestinal complaints Genitourinary: Genitourinary: Reports no additional male genitourinary complaints Musculoskeletal: Musculoskeletal: Reports no additional musculoskeletal complaints Integumentary/Breasts: Skin/Breast: Reports system reviewed and no additional complaints, except as docu Neurologic: Reports system reviewed and no additional complaints, except as documented Psychiatric: Psychiatric: Reports no additional psychiatric complaints Endocrine: Endocrine: Reports no additional endocrine complaints Hematologic/Lymphatic: Hematologic/Lymphatic: Reports no additional hematologic/lymphatic complaints Allergic/Immunologic: Allergic/Immunologic: Reports no additional allergic/immunologic complaints [facility] Past Medical History Medical History Abnormal fasting glucose glucose 104 with hemoglobin A1c 5.7 on 08/17/2021. Glucose 90 in the ER on 08/28/2021. fasting glucose 108 with hemoglobin A1c 5.7 on 08/20/2022. Glucose 97 with hemoglobin A1c 5.1 on 08/07/2023. Acute superficial venous thrombosis of lower extremity (~06/04/21) superficial vein thrombosis in the left lesser saphenous vein in ER 06/18/2021 Atrial fibrillation with rapid ventricular response BMI 33.0-33.9,adult BMI 34.0-34.9,adult BMI 35.0-35.9,adult Chronic depression (~06/04/22) Chronic low back pain with right-sided sciatica Chronic low back pain without sciatica Chronic pain of both shoulders Colon cancer screening Cologuard screening was negative on 05/26/2019. Recheck in 3 years. Negative Cologuard screening on 12/04/2022. COVID-19 (10/23/21) positive home test on 10/22/2021. Elevated PSA, less than 10 ng/ml PSA 4.4 on 08/12/2020. PSA 5.3 with 19.4% free PSA on 08/17/2021. PSA 7.1 with 20% free PSA on 08/20/2022. Frequent epistaxis Gross hematuria Heart palpitations History of cardioversion 2017 Insomnia Lateral epicondylitis of left elbow Nasal pain Obesity (BMI 30.0-34.9) BMI currently 31.1 05/19/2022 Paroxysmal atrial fibrillation Pre-diabetes Hemoglobin A1c 5.7 08/17/2021 with a fasting glucose of 104 Right-sided epistaxis Right-sided epistaxis Snoring apnea link in hospital was negative for JANNY 05/18/2022. UTI (urinary tract infection) (~03/18/23) Surgical History Surgical History No significant past surgical history Family History Family History Mother Acute myocardial infarction Congestive heart failure Hypertension Father History of blood clots Atrial fibrillation Chronic obstructive pulmonary disease Prostate carcinoma Sibling History of blood clots Diabetes mellitus Hypertension Cerebrovascular accident Sibling Atrial fibrillation Social History Social History Social History: Lives independently Recently retired in February 2021 Full code POA: Anny, PCP: Dr. Amari Elizondo Smoking packs per day: 0.5 Smoking cigarettes per day: 10.0 Years smoked: 37 Smoking pack-years: 18.50 Smoking status: Former smoker Tobacco type: cigarettes Additional smoking assessment comments: He smoked for 37 years he smoked a half/day Alcohol intake: current Alcohol use details: The patient was drinking bourbon and beer quite heavily (6 shots and 1-2 beers a day) for the last couple of years since he retired in 2020 but is only rarely drinking 1 beer or bourbon since December 2021 when he had recurrent AFib. Substance use: never Substance use type: does not use Last use: occasionally drinks bourbon, hasn't really since 12/2021 Lack of Transportation: No Lack of Food: Never True Current Housing: I Have Housing Concerned About Future Housing: No Difficulty Paying Gas/Electric Bills: No Difficulty Paying for Meds: No Currently Unemployed: No Education: Trade/Vocational Certificate Difficulty w/ Childcare or Family Care: No Additional living arrangements comments: He lives with his in [place]. They have been since 1983. Additional occupation/education comments: He retired in February 2021. 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 Spiritual care concerns: No Exam Const: General: healthy appearing Nutritional Appearance: well nourished Orientation/consciousness: patient oriented x3 Limitations: no limitations HENMT: Head: normal to inspection Ears: external ears normal Face/Nose/Sinus: Normal external nose present Eyes: Conjunctivae: conjunctivae normal Pupils: Equal, round and reactive pupils present EOM: EOMs intact bilaterally Neck: Neck: normal visual inspection Chest: Chest palpation & inspection: normal inspection of the chest Resp: Effort & Inspection: normal respiratory effort and not labored Auscultation: clear to auscultation bilaterally and no crackles Cardio: Rate: tachycardic Rhythm: abnormal rhythm Heart sounds: no murmurs GI: Inspection: non-distended GI Palp: Yes Soft to palpation and No Tenderness to palpation present (GI) Auscultation: normal bowel sounds : General: Yes bladder normal to palpation Back/Spine/Pelvis: Back: no CVA tenderness Skin: General skin exam: normal color Rashes: no rashes Wounds: no wounds Neuro: General: patient oriented x3 Cranial nerves: Yes Nystagmus not present Speech: normal speech Gait exam (Neuro): Normal gait present Extrem: General: normal to inspection Psych: Mental Status: mental status grossly normal Affect: normal affect Attitude: cooperative Course Vital Signs Vital signs: Vital Signs Temperature 36.6 C 04/05/24 13:37 Pulse Rate 196 H 04/05/24 13:37 Respiratory Rate 20 04/05/24 13:37 Blood Pressure 160/101 H 04/05/24 13:37 Pulse Oximetry 99 04/05/24 13:37 Oxygen Delivery Room Air 04/05/24 13:37 Temperature 36.6 C 04/05/24 13:37 Pulse Rate 177 H 04/05/24 13:51 Respiratory Rate 20 04/05/24 13:37 Blood Pressure 160/101 H 04/05/24 13:37 Pulse Oximetry 99 04/05/24 13:37 Oxygen Delivery Room Air 04/05/24 13:37 MDM - Arrhythmia/Palpitations MDM Narrative Medical decision making narrative: patient is a 63-year-old male with AFib now in RVR. We will check labs and give Cardizem. Patient was given Cardizem twice at 10 mg and he is running in the 130s. I discussed the case with his middle school technology teacher and they want him admitted for further rate control and back to normal sinus rhythm. He added a beta-manuel oral at this time. He was given a bag of IV fluids. Lab Data Attestation: I reviewed the patient's lab results. 04/05/24 13:51 04/05/24 13:51 Labs: Lab Results 04/05/24 Range/Units 13:51 WBC 8.4 (4.8-10.8) K/mm3 RBC 5.30 (4.70-6.10) M/mm3 Hgb 16.6 H (12.4-15.3) g/dL Hct 48.3 H (37.0-46.0) % MCV 91.1 (78.0-102.0) fL MCH 31.3 H (27.0-31.0) pg MCHC 34.4 (32-36) g/dL RDW 12.5 (11.6-14.4) % Plt Count 304 (150-420) K/mm3 MPV 10.5 (8.7-11.0) fl Immature Gran % (Auto) 0.4 H (0.0-0.0) % Neut % (Auto) 70.6 H (50.0-70.0) % Lymph % (Auto) 18.0 (18.0-42.0) % Vance % (Auto) 9.8 (2.0-11.0) % Eos % (Auto) 0.5 L (1.0-6.0) % Baso % (Auto) 0.7 (0.0-1.0) % Lymph # (Auto) 1.52 (1.10-4.50) K/mm3 Vance # (Auto) 0.83 (0.10-0.90) K/mm3 Eos # (Auto) 0.04 (0.02-0.50) K/mm3 Baso # (Auto) 0.06 (0.00-0.10) K/mm3 Abs Immat Gran (auto) 0.03 H (0.00-0.00) K/mm3 Absolute Neuts (auto) 5.95 (1.70-7.20) K/mm3 Absolute Nucleated RBC 0.00 (0.00-0.00) K/mm3 Nucleated RBC % 0.0 (0-0.0) % Sodium 142 (136-145) mmol/L Potassium 4.2 (3.5-5.1) mmol/L Chloride 105 (98-108) mmol/L Carbon Dioxide 27 (21-32) mmol/L Anion Gap 10 (4-12) mmol/L BUN 9 (7-18) mg/dL Creatinine 1.11 (0.70-1.30) mg/dL Estim Creat Clear Calc 72 ml/min Estimated GFR > 60 (59 - ) Glucose 126 H (70-99) mg/dL Calculated Osmolality 294 (285-295) mOsm/kg Calcium 9.8 (8.5-10.1) mg/dL Total Bilirubin 0.5 (0.00-1.00) mg/dL AST 15 (15-37) U/L ALT 28 (16-63) U/L Alkaline Phosphatase 103 (46-116) U/L Troponin I 10.6 (0.00-60.4) ng/L NT-Pro-B Natriuret Pep 69 (0-125) pg/mL Total Protein 8.1 (6.4-8.2) g/dL Albumin 4.1 (3.4-5.0) g/dL TSH 1.05 (0.36-3.74) uIU/mL Urine Color Light yellow (Yellow) Urine Appearance Clear (Clear) Urine pH 5.5 (5.0-8.0) Ur Specific [place] <= 1.005 L (1.010-1.020) Urine Protein Negative (Negative) Urine Glucose (UA) Negative (Negative) Urine Ketones Negative (Negative) Ur Blood (Man) Negative (Negative) Urine Nitrate Negative (Negative) Urine Bilirubin Negative (Negative) Urine Urobilinogen 0.2 (0.2-1.0) mg/dL Leukocyte Esterase Rfl Negative (Negative) CESAR/UL Imaging Data Attestation: I personally reviewed and interpreted this imaging study as follows: Radiologist's impression: chest x-rays negative for acute process ECG Data EKG #1: Attestation: I personally reviewed and interpreted this ECG as follows: ECG completion date: 04/05/24 ECG completion time: 13:52 EKG Interpretation: tachycardia, atrial fibrillation, non-specific ST changes, normal QRS, normal QT and left axis Discharge Plan Discharge Clinical Impression: Atrial fibrillation with RVR Patient Disposition: Acute Care Hospital Condition: Improved Prescriptions: No Action finasteride 5 mg tablet 5 mg PO DAILY cholecalciferol (vitamin D3) [Vitamin D3] 50 mcg (2,000 unit) tablet 2,000 unit PO DAILY alprazolam [Xanax] 0.25 mg tablet 0.25 mg PO TID PRN (Reason: anxiety) Qty: 30 5RF cyanocobalamin (vitamin B-12) [Vitamin B-12] 1,000 mcg Tablet 1,000 mcg PO DAILY Multaq 400 mg Tablet 400 mg PO BIDWM Qty: 60 0RF zolpidem [Ambien] 10 mg tablet 10 mg PO QHS PRN (Reason: insomnia) Qty: 30 1RF Eliquis 5 mg tablet 5 mg PO BID Qty: 60 11RF Follow-up/Referrals: Amari Elizondo MD [Primary Care Provider] - Time of Disposition: 15:23
[2024-04-05] MEDS: dilTIAZem HCl INJ 25 MG/5 ML VIAL 10 MG IV PUSH ×2 (13:46→14:11)
[2024-04-05 13:55] LABS: Basophils Absolute Auto 0.06 K/mm3 (0.00-0.10); Basophils Percent Auto 0.7 % (0.0-1.0); Eosinophils Absolute Auto 0.04 K/mm3 (0.02-0.50); Eosinophils Percent Auto 0.5 % (1.0-6.0); Hematocrit 48.3 % (37.0-46.0); Hemoglobin 16.6 g/dL (12.4-15.3); Immature Granulocyte Absolute 0.03 K/mm3 (0.00-0.00); Immature Granulocyte Percent A 0.4 % (0.0-0.0); Lymphocytes Absolute Auto 1.52 K/mm3 (1.10-4.50); Mean Corpuscular HGB Conc 34.4 g/dL (32-36); Mean Corpuscular Hemoglobin 31.3 pg (27.0-31.0); Mean Corpuscular Volume 91.1 fL (78.0-102.0); Mean Platelet Volume 10.5 fl (8.7-11.0); Monocytes Absolute Auto 0.83 K/mm3 (0.10-0.90); Monocytes Percent Auto 9.8 % (2.0-11.0); Neutrophils Absolute Auto 5.95 K/mm3 (1.70-7.20); Neutrophils Percent Auto 70.6 % (50.0-70.0); Platelet Count Result 304 K/mm3 (150-420); Red Cell Distribution Width 12.5 % (11.6-14.4); White Blood Count 8.4 K/mm3 (4.8-10.8)
[2024-04-05 14:21] LABS: Alanine Aminotransferase 28 U/L (16-63); Albumin Level 4.1 g/dL (3.4-5.0); Alkaline Phosphatase 103 U/L (46-116); Anion Gap 10 mmol/L (4-12); Aspartate Amino Transferase 15 U/L (15-37); Bilirubin,Total 0.5 mg/dL (0.00-1.00); Blood Urea Nitrogen 9 mg/dL (7-18); Calcium 9.8 mg/dL (8.5-10.1); Carbon Dioxide 27 mmol/L (21-32); Chloride 105 mmol/L (98-108); Estimated CRCL calculation 72 ml/min; Estimated Glomerular Filt Rate > 60; Glucose 126 mg/dL (70-99); NT Pro B Type Natriuretic Pept 69 pg/mL (0-125); Osmolality Calculated 294 mOsm/kg (285-295); Potassium 4.2 mmol/L (3.5-5.1); Sodium 142 mmol/L (136-145); Thyroid Stimulating Hormone 1.05 uIU/mL (0.36-3.74); Total Protein 8.1 g/dL (6.4-8.2); Troponin I 10.6 ng/L (0.00-60.4)
[2024-04-05] MEDS: SODIUM CHLORIDE 0.9% IV 1,000 ML 999 ML IV CONT (14:22)
[2024-04-05 14:32] LABS: Add Urine Microscopic? NO; Appearance Urine Clear (Clear); Bilirubin Urine Negative (Negative); Blood Urine Negative (Negative); Color Urine Light Yellow (Yellow); Glucose Urine UA Negative (Negative); Ketones Urine Negative (Negative); Leukocyte Esterase Ur Negative LEU/UL (Negative); Nitrate Urine Negative (Negative); Protein Urine Negative (Negative); Specific Grav Ur <= 1.005 (1.010-1.020); Urobilinogen Urine 0.2 mg/dL (0.2-1.0); pH Urine 5.5 (5.0-8.0)
[2024-04-05] MEDS: METOPROLOL TARTRATE 50 MG TAB 25 MG PO (15:32)
[2024-04-05] MEDS: ACETAMINOPHEN 500 MG TABLET 1000 MG PO (17:47)
== END 2024-04-05 19:44 | disposition short-term general hospital (02) ==
PROVIDERS: Emergency Provider Emergency Medicine; PCP Family Medicine
DX: I48.20 Chronic atrial fibrillation, unspecified (principal); Z79.01 Long term (current) use of anticoagulants; Z87.891 Personal history of nicotine dependence
CPT/HCPCS: 36415; 71045; 80053; 81003; 83880; 84443; 84484; 85025; 93005; 96361; 96374; 99284; 99285; A9270; J7030

== ENCOUNTER 2024-04-05 20:29 | Observation (INO) | payer MEDICARE, SELFPAY ==
[2024-04-05 20:30] VITALS: BMI 33.5
--- NOTE | 2024-04-05 20:30 | P.HP_ITS ---
H&P: HPI History of Present Illness Date/Time: 04/05/24 20:30 Chief Complaint: Atrial fibrillation with rapid ventricular response. Narrative: This is a pleasant 63-year-old male with paroxysmal atrial fibrillation on chronic anticoagulation, hypertension, mitral valve prolapse, gastroesophageal reflux disease, benign prostatic hyperplasia, depression, and anxiety who is being directly admitted from the emergency department at [facility] for cardiology consultation after he presented to their facility with palpitations, found to be in atrial fibrillation with rapid ventricular response . The patient provides the following history. This morning while drinking cold orange juice his heart began to race and he had palpitations for approximately 3 hours before going to the ED. He had a brief twinge of chest discomfort which was fleeting. He also reports feeling a bit warm. He denies syncope, near syncope, exertional chest pain, shortness a breath, nausea, sweats. He has not missed any doses of dronedarone. He denies significant caffeine use and rarely drinks alcohol. In the ED: He was afebrile on arrival with stable blood pressures. He was in rapid atrial fibrillation on arrival with a rate of 196. Labs were significant for WBC count of 8.4, hemoglobin 16.6, hematocrit 40.3%, high sensitivity troponin 10.6, proBNP 69, TSH 1.05. EKG showed rapid atrial fibrillation with borderline ST T-wave abnormalities in the anterolateral leads. Chest x-ray was unremarkable. He received Cardizem 10 mg IV x2 and metoprolol p.o. with improvement in his rate. He remains in atrial fibrillation however in this is the 1st time he has been in AFib for several years and is maintained on dronedarone. He is a patient of Dr. Garcia and transfer was initiated to [place] for consultation with him. Review of Systems Review of Systems: 12 systems were reviewed and are negativ e except for as per HPI. [facility] Past Medical History Medical History (Updated 04/05/24 @ 20:36 by Katharina Holliday PA-C) Acute superficial venous thrombosis of lower extremity (06/04/21) superficial vein thrombosis in the left lesser saphenous vein Benign prostatic hyperplasia Chronic anticoagulation Chronic back pain Chronic depression Colon cancer screening Negative Cologuard screening on 12/04/2022. COVID-19 (10/23/21) positive home test Elevated PSA, less than 10 ng/ml PSA 4.4 on 08/12/2020. PSA 5.3 with 19.4% free PSA on 08/17/2021. PSA 7.1 with 20% free PSA on 08/20/2022. Insomnia Paroxysmal atrial fibrillation Snoring apnea link in hospital was negative on 05/18/2022 Surgical History Surgical History (Updated 04/05/24 @ 20:32 by Katharina Holliday PA-C) History of cardioversion 2017 Family History Family History Mother Acute myocardial infarction Congestive heart failure Hypertension Father History of blood clots Atrial fibrillation Chronic obstructive pulmonary disease Prostate carcinoma Sibling History of blood clots Diabetes mellitus Hypertension Cerebrovascular accident Sibling Atrial fibrillation Social History Social History (Updated 04/05/24 @ 20:32 by Katharina Holliday PA-C) Social History: Surrogate medical decision maker: Anny Thomson, spouse. Code status: Full code. Smoking packs per day: 0.5 Smoking cigarettes per day: 10.0 Years smoked: 37 Smoking pack-years: 18.50 Smoking status: Former smoker Tobacco type: cigarettes Additional smoking assessment comments: He smoked for 37 years he smoked a half/day Alcohol intake: current Alcohol use details: The patient was drinking bourbon and beer quite heavily (6 shots and 1-2 beers a day) for the last couple of years since he retired in 2020 but is only rarely drinking 1 beer or bourbon since December 2021 when he had recurrent AFib. Substance use: never Substance use type: does not use Last use: occasionally drinks bourbon, hasn't really since 12/2021 Do You Feel Safe in your Home?: Yes Lack of Transportation: No Lack of Food: Never True Current Housing: I Have Housing Concerned About Future Housing: No Difficulty Paying Gas/Electric Bills: No Difficulty Paying for Meds: No Currently Unemployed: No Education: Trade/Vocational Certificate Difficulty w/ Childcare or Family Care: No Additional living arrangements comments: He lives with his in [place]. They have been since 1983. Additional occupation/education comments: He retired in February 2021. 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 Spiritual care concerns: No Meds Home Medications and Allergies Home Medications Medication Instructions Recorded Confirmed Type cyanocobalamin (vitamin B-12) 1,000 mcg PO DAILY 05/19/22 04/05/24 History 1,000 mcg tablet (Vitamin B-12) dronedarone 400 mg tablet (Multaq) 400 mg PO BIDWM #60 tabs 05/21/22 04/05/24 Rx cholecalciferol (vitamin D3) 50 2,000 unit PO DAILY 06/04/22 04/05/24 History mcg (2,000 unit) tablet (Vitamin D3) alprazolam 0.25 mg tablet (Xanax) 0.25 mg PO TID PRN anxiety #30 tabs 10/30/23 04/05/24 Rx zolpidem 10 mg tablet (Ambien) 10 mg PO QHS PRN insomnia #30 tabs 11/06/23 04/05/24 Rx apixaban 5 mg tablet (Eliquis) 5 mg PO BID #60 tabs 01/02/24 04/05/24 Rx finasteride 5 mg tablet 5 mg PO DAILY 04/05/24 04/05/24 History [id number] 300 mcg-K 60 1 tablet PO DAILY 04/05/24 04/05/24 History mcg-lycop 600 mcg-lutein 300 mcg tablet (Centrum Silver Men) tramadol 50 mg tablet 50 mg PO PRN PRN Back Pain 04/05/24 04/05/24 History Allergies Allergy/AdvReac Type Severity Reaction Status Date / Time azithromycin AdvReac Mild BLOOD IN Verified 04/05/24 13:59 STOOL Exam Narrative: General: Well-developed, nontoxic-appearing male sitting up in bed in no acute distress. Weight: 106.1 kg. BMI: 33.6. HEENT: Normocephalic, atraumatic. PERRL, EOMI. Sclera anicteric. Oral mucosa moist. Neck: Supple. No JVD. Respiratory: Lungs are clear to auscultation bilaterally. Cardiovascular: Irregularly irregular rate and rhythm. Gastrointestinal: Abdomen is soft, nontender, and nondistended with positive bowel sounds. Skin: Warm and dry. No rash or lesions on limited exam. Extremities: No cyanosis, clubbing, or edema. Radial and pedal pulses intact. Neurological: Alert. Cranial nerves 2-12 are grossly intact. No gross focal deficits to casual conversation. Psychiatric: Pleasant and cooperative with normal mood and affect. Judgment and insight intact. H&P: Results Labs Labs: Lab Results 04/05/24 Range/Units 13:51 WBC 8.4 (4.8-10.8) K/mm3 RBC 5.30 (4.70-6.10) M/mm3 Hgb 16.6 H (12.4-15.3) g/dL Hct 48.3 H (37.0-46.0) % MCV 91.1 (78.0-102.0) fL MCH 31.3 H (27.0-31.0) pg MCHC 34.4 (32-36) g/dL RDW 12.5 (11.6-14.4) % Plt Count 304 (150-420) K/mm3 MPV 10.5 (8.7-11.0) fl Immature Gran % (Auto) 0.4 H (0.0-0.0) % Neut % (Auto) 70.6 H (50.0-70.0) % Lymph % (Auto) 18.0 (18.0-42.0) % Early % (Auto) 9.8 (2.0-11.0) % Eos % (Auto) 0.5 L (1.0-6.0) % Baso % (Auto) 0.7 (0.0-1.0) % Lymph # (Auto) 1.52 (1.10-4.50) K/mm3 Early # (Auto) 0.83 (0.10-0.90) K/mm3 Eos # (Auto) 0.04 (0.02-0.50) K/mm3 Baso # (Auto) 0.06 (0.00-0.10) K/mm3 Abs Immat Gran (auto) 0.03 H (0.00-0.00) K/mm3 Absolute Neuts (auto) 5.95 (1.70-7.20) K/mm3 Absolute Nucleated RBC 0.00 (0.00-0.00) K/mm3 Nucleated RBC % 0.0 (0-0.0) % Sodium 142 (136-145) mmol/L Potassium 4.2 (3.5-5.1) mmol/L Chloride 105 (98-108) mmol/L Carbon Dioxide 27 (21-32) mmol/L Anion Gap 10 (4-12) mmol/L BUN 9 (7-18) mg/dL Creatinine 1.11 (0.70-1.30) mg/dL Estim Creat Clear Calc 72 ml/min Estimated GFR > 60 (59 - ) Glucose 126 H (70-99) mg/dL Calculated Osmolality 294 (285-295) mOsm/kg Calcium 9.8 (8.5-10.1) mg/dL Total Bilirubin 0.5 (0.00-1.00) mg/dL AST 15 (15-37) U/L ALT 28 (16-63) U/L Alkaline Phosphatase 103 (46-116) U/L Troponin I 10.6 (0.00-60.4) ng/L NT-Pro-B Natriuret Pep 69 (0-125) pg/mL Total Protein 8.1 (6.4-8.2) g/dL Albumin 4.1 (3.4-5.0) g/dL TSH 1.05 (0.36-3.74) uIU/mL Urine Color Light yellow (Yellow) Urine Appearance Clear (Clear) Urine pH 5.5 (5.0-8.0) Ur Specific [place] <= 1.005 L (1.010-1.020) Urine Protein Negative (Negative) Urine Glucose (UA) Negative (Negative) Urine Ketones Negative (Negative) Ur Blood (Man) Negative (Negative) Urine Nitrate Negative (Negative) Urine Bilirubin Negative (Negative) Urine Urobilinogen 0.2 (0.2-1.0) mg/dL Leukocyte Esterase Rfl Negative (Negative) CESAR/UL Imaging Chest x-ray: Radiologist's impression: No acute cardiopulmonary disease. Assessment and Plan Assessment and plan (1) Atrial fibrillation with rapid ventricular response: Code(s): I48.91 - Unspecified atrial fibrillation Status: Acute (2) Chronic anticoagulation: Code(s): Z79.01 - manager long term care (current) use of anticoagulants Status: Acute (3) Chronic anxiety: Code(s): F41.9 - Anxiety disorder, unspecified Status: Acute (4) Benign prostatic hyperplasia: Code(s): N40.0 - Benign prostatic hyperplasia without lower urinary tract symptoms Status: Acute Plan The patient presented to the emergency department the outside facility for evaluation of palpitations for 3 hours as detailed in HPI. Labs, imaging, EKG, and all reports were personally reviewed. He was in rapid atrial fibrillation with a rate of 196 on arrival to their facility and he is now rate controlled after receiving Cardizem 20 mg IV and metoprolol tartrate 25 mg p.o.. Continue dronedarone 400 mg twice daily and apixaban for stroke prophylaxis. Dr. Garcia has been consulted and his input is appreciated. The patient will be monitored on telemetry overnight. Blood pressures have been running a bit high and will be monitored. His home medications will be reviewed and resumed as appropriate. Findings and treatment plan were discussed with the patient. Questions were solicited and answered to satisfaction. The patient's medical management will be taken over by the hospitalist team in a.m. Quality VTE Prophylaxis VTE prophylaxis: pharmacologic ordered (on apixaban) The patient has been admitted under observation status. Hospitalist MIPS Advance Care Plan I have confirmed that the patient's Advanced Care Plan is present, code status is documented, or surrogate decision maker is listed in patient medical record.: Yes Medication Reconciliation I have utilized all available resources to obtain, update and [facility] the [facility] current medications (includes all prescriptions, OTC, herbals, cannabis, and nutritional supplements).: Yes
--- NOTE | 2024-04-05 20:30 | ADMGEN ---
This patient, Marshall Thomson, was admitted to Medical Room 344-01. Patient/family oriented to hospital policies and general routines including ID bracelet, bed and alarms, visiting hours, pain management, procedures, bathroom and other care routines, personal items, smoking policy, room service/diet, and visiting hours. Information on how to activate the Rapid Response Team has been discussed. Patient/Family are encouraged to report perceived risks to care and to ask questions if they do not understand what they are told or what they should do.
[2024-04-05 21:01] VITALS: BP 165/103; PULSE 88; RESP 20; TEMP 36.9; O2SAT 98
[2024-04-05 21:21] VITALS: PULSE 93
--- NOTE | 2024-04-05 21:33 | PC.NURSE ---
Pt requested a pure-wick for the night, Pt is continent and is able to tell us when she has to use the restroom and is able to ambulate to the restroom with assistance. I explained the reason that a pure-wick was not appropriate at this time and that she is getting stronger and able to walk and use the restroom. She agreed that the goal is to go home and that she does not use a pure-wick at home and that she is able to walk to the restroom but felt it would help her rest better if she did not have to get up. I explained that if getting up to use the restroom is normal at night for her then that is ok and that she will get stronger by moving and getting up to use the restroom as she needed to do so. That the pure-wick is not intended for someone who is continent and ambulatory.
[2024-04-05] MEDS: ACETAMINOPHEN 325 MG TABLET 650 MG PO (21:37)
[2024-04-05 21:40] VITALS: BP 144/90
[2024-04-05 22:13] VITALS: PULSE 88
[2024-04-05] MEDS: ALPRAZolam (*CRX) 0.25 MG TABLET PO (22:13)
[2024-04-05] MEDS: DRONEDARONE HCL 400 MG TABLET PO (22:13)
[2024-04-05] MEDS: APIXABAN 5 MG TABLET PO (22:13)
[2024-04-06] VITALS (14 sets, daily range): BP systolic 124–153; BP diastolic 82–92; PULSE 59–132; RESP 18–20; TEMP 36.2–37; O2SAT 98–100
[2024-04-06 06:12] LABS: Hematocrit 49.1 % (42.0-52.0); Hemoglobin 16.3 g/dL (14.0-18.0); Mean Corpuscular HGB Conc 33.2 g/dl (32-36); Mean Corpuscular Hemoglobin 31.3 pg (26-34); Mean Corpuscular Volume 94.4 fl (80-100); Mean Platelet Volume 10.7 fl (7.4-10.4); Platelet Count Result 329 k/mm3 (150-375); Red Cell Distribution Width 12.8 % (11.5-14.5); White Blood Count 9.4 K/mm3 (4.5-10.0)
[2024-04-06 06:25] LABS: Anion Gap 7 mmol/L (4-12); Blood Urea Nitrogen 10 mg/dL (9-20); Calcium 9.4 mg/dL (8.4-10.2); Carbon Dioxide 24 mmol/L (22-30); Chloride 109 mmol/L (98-107); Estimated CRCL calculation 88 ml/min; Estimated Glomerular Filt Rate > 60; Glucose 98 mg/dL (65-110); Magnesium 2.2 mg/dL (1.6-2.3); Potassium 4.1 mmol/L (3.4-5.0); Sodium 140 mmol/L (137-145)
[2024-04-06 06:36] LABS: Troponin I < 0.012 ng/mL (0.000-0.034)
--- NOTE | 2024-04-06 08:47 | P.CONCA_ITS ---
Assessment and Plan Assessment and plan (1) Atrial fibrillation with rapid ventricular response: Code(s): I48.91 - Unspecified atrial fibrillation Status: Acute Assessment and Plan: History of paroxysmal atrial fibrillation which has been managed in recent years with Multaq. This is his 1st recurrence of rapid AFib in a couple of years. He has not missed any doses of his Eliquis and would prefer to restore sinus rhythm versus pursue rate control. Therefore, will schedule him for DCCV later today. In the meantime, can give IV Lopressor p.r.n. for his tachycardia and palpitations. If he successfully converts to sinus rhythm, he could be discharged home later today from cardiac perspective. History of Present Illness History of Present Illness Consult date/time: 04/06/24 08:47 Requesting physician: Katharina Holliday PA-C Consult reason: atrial fibrillation Reason For Visit: Rapid A-Fib Narrative: Marshall Thomson is a 63 year old male with atrial fibrillation who follows with Dr. Garcia. He has a longstanding history of paroxysmal atrial fibrillation previously managed with sotalol briefly, multiple cardioversions, and now is on Multaq. He presented to an outside hospital with a sudden onset of palpitations. He was found to be in atrial fibrillation with rapid ventricular response. He was given IV diltiazem and IV Lopressor which did control his heart rate. He does remain in atrial fibrillation and at this time is in rapid ventricular response with heart rate in 150s to 160s. He does symptomatic with palpitations. He denies any shortness of breath, chest pain. Review of Systems Review of Systems: All systems reviewed & are unremarkable except as noted in HPI and below [facility] Past Medical History Medical History Acute superficial venous thrombosis of lower extremity (06/04/21) superficial vein thrombosis in the left lesser saphenous vein Benign prostatic hyperplasia Chronic anticoagulation Chronic back pain Chronic depression Colon cancer screening Negative Cologuard screening on 12/04/2022. COVID-19 (10/23/21) positive home test Elevated PSA, less than 10 ng/ml PSA 4.4 on 08/12/2020. PSA 5.3 with 19.4% free PSA on 08/17/2021. PSA 7.1 with 20% free PSA on 08/20/2022. Insomnia Paroxysmal atrial fibrillation Snoring apnea link in hospital was negative on 05/18/2022 Surgical History Surgical History History of cardioversion 2017 Family History Family History Mother Acute myocardial infarction Congestive heart failure Hypertension Father History of blood clots Atrial fibrillation Chronic obstructive pulmonary disease Prostate carcinoma Sibling History of blood clots Diabetes mellitus Hypertension Cerebrovascular accident Sibling Atrial fibrillation Social History Social History Social History: Surrogate medical decision maker: Anny Thomson, spouse. Code status: Full code. Smoking packs per day: 0.5 Smoking cigarettes per day: 10.0 Years smoked: 37 Smoking pack-years: 18.50 Smoking status: Former smoker Tobacco type: cigarettes Additional smoking assessment comments: He smoked for 37 years he smoked a half/day Alcohol intake: current Alcohol use details: The patient was drinking bourbon and beer quite heavily (6 shots and 1-2 beers a day) for the last couple of years since he retired in 2020 but is only rarely drinking 1 beer or bourbon since December 2021 when he had recurrent AFib. Substance use: never Substance use type: does not use Last use: occasionally drinks bourbon, hasn't really since 12/2021 Do You Feel Safe in your Home?: Yes Lack of Transportation: No Lack of Food: Never True Current Housing: I Have Housing Concerned About Future Housing: No Difficulty Paying Gas/Electric Bills: No Difficulty Paying for Meds: No Currently Unemployed: No Education: Trade/Vocational Certificate Difficulty w/ Childcare or Family Care: No Additional living arrangements comments: He lives with his in [place]. They have been since 1983. Additional occupation/education comments: He retired in February 2021. 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 Spiritual care concerns: No Meds Home Medications and Allergies Home Medications Medication Instructions Recorded Confirmed Type cyanocobalamin (vitamin B-12) 1,000 mcg PO DAILY 05/19/22 04/05/24 History 1,000 mcg tablet (Vitamin B-12) dronedarone 400 mg tablet (Multaq) 400 mg PO BIDWM #60 tabs 05/21/22 04/05/24 Rx cholecalciferol (vitamin D3) 50 2,000 unit PO DAILY 06/04/22 04/05/24 History mcg (2,000 unit) tablet (Vitamin D3) alprazolam 0.25 mg tablet (Xanax) 0.25 mg PO TID PRN anxiety #30 tabs 10/30/23 04/05/24 Rx zolpidem 10 mg tablet (Ambien) 10 mg PO QHS PRN insomnia #30 tabs 11/06/23 04/05/24 Rx apixaban 5 mg tablet (Eliquis) 5 mg PO BID #60 tabs 01/02/24 04/05/24 Rx finasteride 5 mg tablet 5 mg PO DAILY 04/05/24 04/05/24 History mrtmovmx-ya-veerm 300 mcg-K 60 1 tablet PO DAILY 04/05/24 04/05/24 History mcg-lycop 600 mcg-lutein 300 mcg tablet (Centrum Silver Men) tramadol 50 mg tablet 50 mg PO PRN PRN Back Pain 04/05/24 04/05/24 History Allergies Allergy/AdvReac Type Severity Reaction Status Date / Time azithromycin AdvReac Mild BLOOD IN Verified 04/05/24 13:59 STOOL Vital Signs Vital Signs - 24 hr 04/05/24 21:01 04/05/24 21:40 04/05/24 21:21 Temperature 36.9 C Pulse Rate 88 93 Respiratory Rate 20 Blood Pressure 165/103 H 144/90 H Pulse Oximetry 98 Oxygen Delivery 04/05/24 21:15 04/05/24 22:13 04/06/24 00:00 Temperature Pulse Rate 88 81 Respiratory Rate Blood Pressure Pulse Oximetry Oxygen Delivery Room Air 04/06/24 04:00 04/06/24 04:00 Temperature 36.6 C Pulse Rate 80 98 Respiratory Rate 20 Blood Pressure 143/92 H Pulse Oximetry 100 Oxygen Delivery Exam Const: General: comfortable, no acute distress, alert and awake Orientation/consciousness: patient oriented x3 HENMT: Head: normal to inspection Eyes: General: appearance normal, both eyes and all related structures Pupils: Equal, round and reactive pupils present Neck: Neck: normal visual inspection, supple and no JVD Carotids: normal carotid upstroke Resp: Effort & Inspection: normal respiratory effort Auscultation: clear to auscultation bilaterally Cardio: Rate: tachycardic Rhythm: abnormal rhythm irregularly irregular Heart sounds: S1 normal heart sound present, S2 normal heart sound present and no murmurs GI: Auscultation: normal bowel sounds Skin: General skin exam: normal color Neuro: General: patient oriented x3 Cranial nerves: Yes Equal, round and reactive pupils present Extrem: General: normal to inspection Psych: Appearance: grossly normal Mental Status: mental status grossly normal Results Labs and Meds 04/06/24 05:37 04/06/24 05:37 Lab results: Cardiac Enzymes 04/06/24 Range/Units 05:37 Troponin I < 0.012 (0.000-0.034) ng/mL CBC 04/06/24 Range/Units 05:37 WBC 9.4 (4.5-10.0) K/mm3 RBC 5.20 (4.6-6.20) M/mm3 Hgb 16.3 (14.0-18.0) g/dL Hct 49.1 (42.0-52.0) % Plt Count 329 (150-375) k/mm3 Comprehensive Metabolic Panel 04/06/24 Range/Units 05:37 Sodium 140 (137-145) mmol/L Potassium 4.1 (3.4-5.0) mmol/L Chloride 109 H (98-107) mmol/L Carbon Dioxide 24 (22-30) mmol/L BUN 10 D (9-20) mg/dL Creatinine 0.90 (0.7-1.3) mg/dL Glucose 98 (65-110) mg/dL Calcium 9.4 (8.4-10.2) mg/dL Intake and Output 04/05/24 04/06/24 04/06/24 23:59 07:59 15:59 Intake Total 500 Balance 500 Intake: Oral 500 Other: # Unmeasured Voids 3
[2024-04-06] MEDS: DRONEDARONE HCL 400 MG TABLET PO (09:18)
[2024-04-06] MEDS: APIXABAN 5 MG TABLET PO ×2 (09:18→20:53)
[2024-04-06] MEDS: OPTI-GEN TAB 1 TABLET PO (09:19)
[2024-04-06] MEDS: CYANOCOBALAMIN 1,000 MCG TABLET 1000 MCG PO (09:19)
[2024-04-06] MEDS: CHOLECALCIFEROL 1,000 UNITS TABLET 2000 UNITS PO (09:19)
[2024-04-06] MEDS: FINASTERIDE 5 MG TABLET PO (09:19)
[2024-04-06] MEDS: METOPROLOL TARTRATE INJ 5 MG/5 ML VIAL IV PUSH (10:25)
--- NOTE | 2024-04-06 10:59 | P.PNIM_ITS ---
Progress Note: A&P Assessment and Plan (1) Atrial fibrillation with rapid ventricular response: Code(s): I48.91 - Unspecified atrial fibrillation Status: Acute Assessment and Plan: * chest x-ray was negative for any acute cardiopulmonary process * patient was found to be in AFib RVR with a rate of 175 and a QTC of 418 on EKG * [facility] * cardiology consulted * NPO after midnight * cardiac heart healthy diet for today * plan for REJI and cardioversion tomorrow * cardiology started patient on metoprolol 25 mg q.6 hour, rate is more controlled in the 80s to 90s * continue metoprolol 5 mg IV push q.2 hours p.r.n. * continue Eliquis (2) Chronic anxiety: Code(s): F41.9 - Anxiety disorder, unspecified Status: Acute Assessment and Plan: * continue Xanax (3) Benign prostatic hyperplasia: Code(s): N40.0 - Benign prostatic hyperplasia without lower urinary tract symptoms Status: Acute Assessment and Plan: * continue finasteride Time Spent With Patient Time with patient: Greater than 35 minutes Subjective Date/time seen: 04/06/24 10:59 Interval history: Interval history: This is a 63-year-old male who presented to [facility] on 04/05/2024 from [facility] for evaluation of palpitations, noted to be in AFib with RVR. Workup in the hospital included chest x-ray which was negative for any acute cardiopulmonary disease. Initial labs shown a normal white blood cell count of 8.4, hemoglobin 16.6, hematocrit 48.3, troponin negative, TSH normal at 1.05. A UA was obtained which showed a urine specific gravity of 1.005 otherwise negative. EKG showing AFib with RVR with a rate of 175 and a QTC of 418. Patient was given a dose of Xanax, Ambien, Ultram, Tylenol while in the ED. he was also started on Eliquis and given 5 mg IV push of metoprolol. Cardiology was consulted. Subjective: Patient denies any fever, chills, nausea, vomiting, diarrhea, abdominal pain, chest pain, shortness a breath. Patient endorses palpitations and increased heart rate with exertion. Labs and imaging reviewed. Review of Systems Review of Systems: 12 systems were reviewed and are negativ e except for as per HPI. Constitutional: Constitutional: Reports as per HPI and Reports no additional constitutional complaints Eyes: Eyes: Reports as per HPI and Reports no additional eye complaints ENT: Reports system reviewed and no additional complaints, except as documented and Reports as per HPI Cardiovascular: Cardiovascular: Reports as per HPI and Reports no additional cardiovascular complaints Respiratory: Respiratory: Reports as per HPI and Reports no additional respiratory complaints Gastrointestinal: Gastrointestinal: Reports as per HPI and Reports no additional gastrointestinal complaints Genitourinary: Genitourinary: Reports no additional male genitourinary complaints and Reports as per HPI Musculoskeletal: Musculoskeletal: Reports no additional musculoskeletal complaints and Reports as per HPI Integumentary/Breasts: Skin/Breast: Reports system reviewed and no additional complaints, except as docu and Reports as per HPI Neurologic: Reports system reviewed and no additional complaints, except as documented and Reports as per HPI Psychiatric: Psychiatric: Reports no additional psychiatric complaints and Reports as per HPI Exam Narrative: General: In no acute distress, well nourished Head: atraumatic, no encephalopathy Eyes: PERRLA, sclera clear ENT: moist mucous membranes, nasal passages clear Neck: supple, no JVD, no adenopathy, trachea midline Cardiac: Normal S1 and S2. irregular rate and rhythm, AFib with RVR, No murmur, gallops or friction rubs, peripheral pulses intact. Respiratory: Lungs clear to auscultation, no adventitious lung sounds, currently on room air Gastrointestinal: soft, non-distended, non-tender, normoactive bowel sounds. : voiding without difficulty. Extremities: moves all extremities well, no edema, good ROM, strength 5/5 Skin: clean, dry, intact. No wounds or lesions. Neuro: Alert and oriented x4, cranial nerves intact, no neuro deficits. Psych: normal mood, normal affect, interactive Objective Data Vital Signs Vital Signs: Vital Signs - 24 hr 04/05/24 21:01 04/05/24 21:40 04/05/24 21:21 Temperature 98.4 F Pulse Rate 88 93 Respiratory Rate 20 Blood Pressure 165/103 H 144/90 H Pulse Oximetry 98 Oxygen Delivery 04/05/24 21:15 04/05/24 22:13 04/06/24 00:00 Temperature Pulse Rate 88 81 Respiratory Rate Blood Pressure Pulse Oximetry Oxygen Delivery Room Air 04/06/24 04:00 04/06/24 04:00 04/06/24 08:54 Temperature 97.9 F 97.2 F L Pulse Rate 80 98 64 Respiratory Rate 20 20 Blood Pressure 143/92 H 153/82 H Pulse Oximetry 100 100 Oxygen Delivery 04/06/24 09:18 04/06/24 10:25 Temperature Pulse Rate 132 H 126 H Respiratory Rate Blood Pressure Pulse Oximetry Oxygen Delivery Intake/Output Intake/Output: Intake & Output 04/03/24 04/04/24 04/05/24 04/06/24 23:59 23:59 23:59 23:59 Intake Total 500 Balance 500 Meds/Results Medications: Active Medications Generic Name Dose Route Start Last Admin Trade Name Freq PRN Reason Stop Dose Admin Acetaminophen 650 mg 04/05/24 20:28 04/05/24 21:37 Acetaminophen 325 Mg Tablet PO 650 mg Q4H PRN Administration Mild Pain (1-3) or Fever Alprazolam 0.25 mg 04/05/24 21:55 04/05/24 22:13 Alprazolam (*Crx) 0.25 Mg Tablet PO 0.25 mg TID PRN Administration anxiety Apixaban 5 mg 04/05/24 22:00 04/06/24 09:18 Apixaban 5 Mg Tablet PO 5 mg Q12HR MARTA Administration Cyanocobalamin 1,000 mcg 04/06/24 09:00 04/06/24 09:19 Cyanocobalamin 1,000 Mcg Tablet PO 1,000 mcg DAILY MARTA Administration Dronedarone 400 mg 04/05/24 22:00 04/06/24 09:18 Dronedarone Hcl 400 Mg Tablet PO 400 mg BIDWM MARTA Administration Finasteride 5 mg 04/06/24 09:00 04/06/24 09:19 Finasteride 5 Mg Tablet PO 5 mg DAILY MARTA Administration Metoprolol Tartrate 5 mg 04/06/24 09:43 04/06/24 10:25 Metoprolol Tartrate Inj 5 Mg/5 Ml Vial IV PUSH 5 mg Q2H PRN Administration Tachycardia Multivitamins/Minerals 1 tablet 04/06/24 09:00 04/06/24 09:19 Opti-Gen Tab PO 1 tablet DAILY MARTA Administration Tramadol HCl 50 mg 04/05/24 21:55 Tramadol Hcl (*Crx) 50 Mg Tablet PO Q6H PRN back pain Vitamin D 2,000 units 04/06/24 09:00 04/06/24 09:19 Cholecalciferol 1,000 Units Tablet PO 2,000 units DAILY MARTA Administration Zolpidem Tartrate 10 mg 04/05/24 21:55 Zolpidem Tartrate (*Crx) 5 Mg Tablet PO QHS PRN insomnia Labs Labs: Laboratory Results - last 24 hr 04/06/24 05:37 WBC 9.4 RBC 5.20 Hgb 16.3 Hct 49.1 MCV 94.4 MCH 31.3 MCHC 33.2 RDW 12.8 Plt Count 329 MPV 10.7 H Sodium 140 Potassium 4.1 Chloride 109 H Carbon Dioxide 24 Anion Gap 7 BUN 10 D Creatinine 0.90 Estim Creat Clear Calc 88 Estimated GFR > 60 Glucose 98 Calcium 9.4 Magnesium 2.2 Troponin I < 0.012 Quality VTE Prophylaxis VTE prophylaxis: pharmacologic ordered (on apixaban)
[2024-04-06] MEDS: METOPROLOL TARTRATE 25 MG TABLET PO ×2 (15:25→20:53)
[2024-04-06] MEDS: SODIUM CHLORIDE 0.9% IV 1,000 ML 100 ML IV CONT (15:25)
--- NOTE | 2024-04-06 17:33 | PC.NURSE ---
Multaq 400 mg home med held on 04/06/24 at 1700 due to a possible contraindication related to the patients current admitting diagnosis. Verified and approved by hospitalist.
[2024-04-06] MEDS: ACETAMINOPHEN 325 MG TABLET 650 MG PO (18:49)
[2024-04-06] MEDS: ALPRAZolam (*CRX) 0.25 MG TABLET PO (20:53)
[2024-04-07] VITALS (14 sets, daily range): BP systolic 107–140; BP diastolic 79–101; PULSE 60–112; RESP 12–24; TEMP 36.4–36.7; O2SAT 98–100
[2024-04-07] MEDS: METOPROLOL TARTRATE 25 MG TABLET PO ×3 (03:22→16:10)
[2024-04-07] MEDS: ALPRAZolam (*CRX) 0.25 MG TABLET PO (07:17)
[2024-04-07] MEDS: CYANOCOBALAMIN 1,000 MCG TABLET 1000 MCG PO (08:48)
[2024-04-07] MEDS: CHOLECALCIFEROL 1,000 UNITS TABLET 2000 UNITS PO (08:48)
[2024-04-07] MEDS: OPTI-GEN TAB 1 TABLET PO (08:48)
[2024-04-07] MEDS: APIXABAN 5 MG TABLET PO (08:48)
[2024-04-07] MEDS: FINASTERIDE 5 MG TABLET PO (08:48)
--- NOTE | 2024-04-07 09:02 | P.PNCA_ITS ---
Progress Note: A&P Assessment and Plan (1) Atrial fibrillation with rapid ventricular response: Code(s): I48.91 - Unspecified atrial fibrillation Status: Acute Assessment and Plan: History of paroxysmal atrial fibrillation which has been managed in recent years with Multaq. This is his 1st recurrence of rapid AFib in a couple of years. He has not missed any doses of his Eliquis. Discussed rate control vs rhythm control strategies. Will proceed with DCCV today. Continue home Multaq. Continue Eliquis. Will refer to EP as an outpatient (2) Chronic anticoagulation: Code(s): Z79.01 - residential (current) use of anticoagulants Status: Acute Assessment and Plan: Continue Eliquis. Plan Recommendations and plan discussed with Hospitalist. Subjective Date/time seen: 04/07/24 09:02 Interval history: Reason for consult: Atrial fibrillation with RVR HPI: Marshall Thomson is a 63 year old male with atrial fibrillation who follows with Dr. Garcia. He has a longstanding history of paroxysmal atrial fibrillation previously managed with sotalol briefly, multiple cardioversions, a nd now is on Multaq. He presented to an outside hospital with a sudden onset of palpitations. He was found to be in atrial fibrillation with rapid ventricular response. He was given IV diltiazem and IV Lopressor which did control his heart rate. He does remain in atrial fibrillation and at this time is in rapid ventricular response with heart rate in 150s to 160s. He does symptomatic with palpitations. He denies any shortness of breath, chest pain. Date of service 04/07: Remains in AFIB with intermittent RVR. Review of Systems Review of Systems: All systems reviewed & are unremarkable except as noted in HPI and below (HPI) Exam Const: General: comfortable and no acute distress HENMT: Mouth: Yes moist mucous membranes Eyes: General: appearance normal, both eyes and all related structures Sclera: sclerae normal Resp: Effort & Inspection: normal respiratory effort Cardio: Rate: tachycardic Rhythm: abnormal rhythm irregularly irregular Skin: General skin exam: normal color Neuro: Speech: normal speech Psych: Mental Status: mental status grossly normal Affect: normal affect Objective Data Vital Signs Vital Signs: Vital Signs - 24 hr 04/06/24 09:18 04/06/24 10:25 04/06/24 12:18 Temperature 37.0 C Pulse Rate 132 H 126 H 78 Respiratory Rate 18 Blood Pressure 124/89 Pulse Oximetry 98 Oxygen Delivery 04/06/24 15:25 04/06/24 16:27 04/06/24 09:20 Temperature 36.7 C Pulse Rate 132 H 99 Respiratory Rate 18 Blood Pressure 146/89 H Pulse Oximetry 100 100 Oxygen Delivery Room Air 04/06/24 12:00 04/06/24 16:00 04/06/24 20:53 Temperature Pulse Rate 110 H 87 90 Respiratory Rate Blood Pressure Pulse Oximetry Oxygen Delivery 04/06/24 20:00 04/06/24 20:00 04/06/24 20:00 Temperature 37.0 C Pulse Rate 59 L 89 Respiratory Rate 20 Blood Pressure 132/91 H Pulse Oximetry 100 Oxygen Delivery Room Air 04/07/24 00:00 04/07/24 00:00 04/07/24 03:22 Temperature 36.7 C Pulse Rate 60 110 H 93 Respiratory Rate 18 Blood Pressure 140/89 Pulse Oximetry 98 Oxygen Delivery 04/07/24 03:24 04/07/24 04:00 04/07/24 08:25 Temperature 36.5 C 36.4 C Pulse Rate 93 100 112 H Respiratory Rate 20 20 Blood Pressure 136/98 H 134/101 H Pulse Oximetry 100 99 Oxygen Delivery 04/07/24 08:51 04/07/24 08:00 Temperature Pulse Rate 93 Respiratory Rate Blood Pressure Pulse Oximetry Oxygen Delivery Room Air Intake/Output Intake/Output: Intake & Output 04/04/24 04/05/24 04/06/24 04/07/24 23:59 23:59 23:59 23:59 Intake Total 740 480 Output Total 200 Balance 740 280 Meds/Results Medications: Active Medications Generic Name Dose Route Start Last Admin Trade Name Freq PRN Reason Stop Dose Admin Acetaminophen 650 mg 04/05/24 20:28 04/06/24 18:49 Acetaminophen 325 Mg Tablet PO 650 mg Q4H PRN Administration Mild Pain (1-3) or Fever Alprazolam 0.25 mg 04/05/24 21:55 04/07/24 07:17 Alprazolam (*Crx) 0.25 Mg Tablet PO 0.25 mg TID PRN Administration anxiety Apixaban 5 mg 04/05/24 22:00 04/07/24 08:48 Apixaban 5 Mg Tablet PO 5 mg Q12HR MARTA Administration Cyanocobalamin 1,000 mcg 04/06/24 09:00 04/07/24 08:48 Cyanocobalamin 1,000 Mcg Tablet PO 1,000 mcg DAILY MARTA Administration Dronedarone 400 mg 04/05/24 22:00 04/06/24 17:10 Dronedarone Hcl 400 Mg Tablet PO Not Given BIDWM MARTA Finasteride 5 mg 04/06/24 09:00 04/07/24 08:48 Finasteride 5 Mg Tablet PO 5 mg DAILY MARTA Administration Sodium Chloride 1,000 mls @ 100 mls/hr 04/06/24 14:50 04/06/24 15:25 Normal Saline Iv IV CONT 100 mls/hr .Q10H MARTA Administration Metoprolol Tartrate 5 mg 04/06/24 09:43 04/06/24 10:25 Metoprolol Tartrate Inj 5 Mg/5 Ml Vial IV PUSH 5 mg Q2H PRN Administration Tachycardia Metoprolol Tartrate 25 mg 04/06/24 15:00 04/07/24 08:51 Metoprolol Tartrate 25 Mg Tablet PO 25 mg Q6H MARTA Administration Multivitamins/Minerals 1 tablet 04/06/24 09:00 04/07/24 08:48 Opti-Gen Tab PO 1 tablet DAILY MARTA Administration Tramadol HCl 50 mg 04/05/24 21:55 Tramadol Hcl (*Crx) 50 Mg Tablet PO Q6H PRN back pain Vitamin D 2,000 units 04/06/24 09:00 04/07/24 08:48 Cholecalciferol 1,000 Units Tablet PO 2,000 units DAILY MARTA Administration Zolpidem Tartrate 10 mg 04/05/24 21:55 Zolpidem Tartrate (*Crx) 5 Mg Tablet PO QHS PRN insomnia
--- NOTE | 2024-04-07 12:33 | PM.DS ---
DS: Admitting Diagnosis Discharge Date 04/07/24 Admitting Diagnosis AFib with RVR chronic anticoagulation anxiety BPH DS: Discharge Diagnosis Discharge Diagnosis (1) Atrial fibrillation with rapid ventricular response: Code(s): I48.91 - Unspecified atrial fibrillation Status: Acute (2) Chronic anxiety: Code(s): F41.9 - Anxiety disorder, unspecified Status: Acute (3) Benign prostatic hyperplasia: Code(s): N40.0 - Benign prostatic hyperplasia without lower urinary tract symptoms Status: Acute DS: Summary Hospital Course Reason for hospitalization: AFib with RVR chronic anticoagulation anxiety BPH Hospital Course: This is a 63-year-old male who presented to [facility] on 04/05/[address] [facility] for evaluation of palpitations, noted to be in AFib with RVR. Workup in the hospital included chest x-ray which was negative for any acute cardiopulmonary disease. Initial labs shown a normal white blood cell count of 8.4, hemoglobin 16.6, hematocrit 48.3, troponin negative, TSH normal at 1.05. A UA was obtained which showed a urine specific gravity of 1.005 otherwise negative. EKG showing AFib with RVR with a rate of 175 and a QTC of 418. Patient was given a dose of Xanax, Ambien, Ultram, Tylenol while in the ED. he was also started on Eliquis and given 5 mg IV push of metoprolol. Cardiology was consulted. overnight patient was rate controlled with metoprolol 25 mg q.6 hour. Patient was taken to central lab technician today around 1:30 and had a cardioversion done which was successful. He is stable for discharge home on Metoprolol 50mg BID and his Multa patient is stable for discharge at this time. Vital signs are stable, he is afebrile, he is currently on room air. 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 final diagnosis: AFib with RVR Status at Discharge Cognitive/behavioral status at discharge: alert oriented x3 Functional status at discharge: independent ambulation Overall status at discharge: patient is progressing back to baseline Time Spent with Patient Time attestation: Total time spent providing and/or coordinating discharge services: Time spent: Greater than 30 minutes Exam Narrative: General: In no acute distress, well nourished Cardiac: Normal S1 and S2. irregular rate and rhythm, AFib with RVR rate controlled in the 90s, No murmur, gallops or friction rubs, peripheral pulses intact. Respiratory: Lungs clear to auscultation, no adventitious lung sounds, currently on room air Gastrointestinal: soft, non-distended, non-tender, normoactive bowel sounds. : voiding without difficulty. Neuro: Alert and oriented x4 DS: Data Data Completed and Pending Completed studies during hospitalization: chest x-ray Pending studies at discharge: none Procedures/Treatments: cardioversion Discharge Plan Discharge Attending physician on discharge: Cuate Corona Consulting providers: Katharina Holliday Michael J. Discharging Clinician: Shanique Ramon Anticipated Discharge Date/Time: 04/07/24 08:45 Patient Disposition: Home, Self-Care Activity: as tolerated Diet: as tolerated and heart healthy Discharge Instructions: Start metoprolol 50 mg twice a day per Cardiology recommendation Continue Multaq per Cardiology recommendation Cardiology office will call you for a follow up appointment Patient Instructions: Apixaban (By mouth), A-fib (Atrial Fibrillation) (DC), Hypercoagulation (DC) Patient Language: Sami Stand Alone Forms: General Discharge Information Follow-up/Referrals: Nikunj Garcia MD [Physician] - 2 Weeks Amari Elizondo MD [Primary Care Provider] - Discharge Medications: New metoprolol tartrate 50 mg tablet 50 mg PO Q12H Qty: 60 0RF Continued finasteride 5 mg tablet 5 mg PO DAILY cholecalciferol (vitamin D3) [Vitamin D3] 50 mcg (2,000 unit) tablet 2,000 unit PO DAILY alprazolam [Xanax] 0.25 mg tablet 0.25 mg PO TID PRN (Reason: anxiety) Qty: 30 5RF tramadol 50 mg tablet 50 mg PO PRN PRN (Reason: Back Pain) Centrum Silver Men [phone] mcg Tablet 1 tablet PO DAILY cyanocobalamin (vitamin B-12) [Vitamin B-12] 1,000 mcg Tablet 1,000 mcg PO DAILY Multaq 400 mg Tablet 400 mg PO BIDWM Qty: 60 0RF zolpidem [Ambien] 10 mg tablet 10 mg PO QHS PRN (Reason: insomnia) Qty: 30 1RF Eliquis 5 mg tablet 5 mg PO BID Qty: 60 11RF Date of admission: 04/05/24 20:29 Primary Care Provider: Amari Elizondo Admitting Provider: Jose Drummond Attending physician on admission: Shanique Ramon Condition: Improved Quality VTE Prophylaxis VTE prophylaxis: pharmacologic ordered (on apixaban)
--- NOTE | 2024-04-07 13:46 | P.PCNCVR_ITS ---
Cardioversion Cardioversion Date of procedure: 04/07/24 Procedure: Synchronized electrical cardioversion Pre-op diagnosis: Atrial fibrillation with RVR Post-op diagnosis: Other (Successful cardioversion to sinus rhythm. ) Indications: Atrial fibrillation with RVR Description of procedure: Written informed consent obtained. Defibrillator pads placed in an anterior- posterior position. Time out performed by ANDRE Cheung. Sedation administered by Anesthesia team. Once patient was adequately sedated, synchronized electrical cardioversion was performed with 1 shock at 250 joules, which successfully restored sinus rhythm. Patient's hemodynamics and respiratory status was monitored throughout the procedure. No periprocedural complications. Procedure start time: 13:58 Procedure end time: 14:01 Sedation: Sedation administered by Anesthesia team. Findings: Successful synchronized electrical cardioversion to sinus rhythm with 1 shock at 250 joules. Conclusion: Successful synchronized electrical cardioversion to sinus rhythm with 1 shock at 250 joules.
--- NOTE | 2024-04-07 14:05 | ECG_ITS ---
Test Date: 2024-04-07 14:07:52 Measurements Intervals [place] Rate: 69 P: 10 AL: 183 QRS: -31 QRSD: 82 T: 13 QT: 353 QTc: 379 Interpretive Statements SINUS RHYTHM LEFT AXIS DEVIATION POSSIBLE LEFT ATRIAL ENLARGEMENT LOW QRS VOLTAGE IN PRECORDIAL LEADS POSSIBLE ANTERIOR MYOCARDIAL INFARCTION , OF INDETERMINATE AGE INFERIOR INFARCT, AGE INDETERMINATE BASELINE ARTIFACT- I, II, AVR, V1, V4 ABNORMAL ECG Compared to ECG 04/05/2024 13:46:43 ATRIAL FIBRILLATION NO LONGER PRESENT Electronically Signed On 04-07-2024 14:18:46 SHELL SIEVE OPERATOR by Luke Claudio D.O.
--- NOTE | 2024-04-07 14:06 | WPDANESEPPF ---
Anes - Initial Pre Proc Eval Procedure: Operation Date: 04/07/24 13:30 Proposed Procedures p Electrical Cardioversion - Gema Miranda MD Date/Time: 04/07/24 14:06 Surgeon: Shanique Ramon APRN Pre Op Diagnosis: Rapid A-Fib Patient Data Age: 63 Gender: M Height: 1.78 m Weight: 106.1 kg Last Vital Signs Temp 97.6 F 04/07/24 08:25 Pulse 96 04/07/24 12:00 Resp 20 04/07/24 08:25 BP 134/101 H 04/07/24 08:25 Pulse Ox 99 04/07/24 08:25 O2 Del Method Room Air 04/07/24 08:00 Allergies Allergy/AdvReac Type Severity Reaction Status Date / Time azithromycin AdvReac Mild BLOOD IN Verified 04/05/24 13:59 STOOL Home Medications Medication Instructions Recorded Confirmed Type cyanocobalamin (vitamin B-12) 1,000 mcg PO DAILY 05/19/22 04/05/24 History 1,000 mcg tablet (Vitamin B-12) dronedarone 400 mg tablet (Multaq) 400 mg PO BIDWM #60 tabs 05/21/22 04/05/24 Rx cholecalciferol (vitamin D3) 50 2,000 unit PO DAILY 06/04/22 04/05/24 History mcg (2,000 unit) tablet (Vitamin D3) alprazolam 0.25 mg tablet (Xanax) 0.25 mg PO TID PRN anxiety #30 tabs 10/30/23 04/05/24 Rx zolpidem 10 mg tablet (Ambien) 10 mg PO QHS PRN insomnia #30 tabs 11/06/23 04/05/24 Rx apixaban 5 mg tablet (Eliquis) 5 mg PO BID #60 tabs 01/02/24 04/05/24 Rx finasteride 5 mg tablet 5 mg PO DAILY 04/05/24 04/05/24 History tgtvbcke-ge-ocaak 300 mcg-K 60 1 tablet PO DAILY 04/05/24 04/05/24 History mcg-lycop 600 mcg-lutein 300 mcg tablet (Centrum Silver Men) tramadol 50 mg tablet 50 mg PO PRN PRN Back Pain 04/05/24 04/05/24 History Patient hx anesthesia problems: none Family hx anesthesia problems: none Results Review: All pre-operative results and documents have been reviewed as part of the pre-operative evaluation. FORMERLY [facility], [facility] Past Medical History Medical History Acute superficial venous thrombosis of lower extremity (06/04/21) superficial vein thrombosis in the left lesser saphenous vein Benign prostatic hyperplasia Chronic anticoagulation Chronic back pain Chronic depression Colon cancer screening Negative Cologuard screening on 12/04/2022. COVID-19 (10/23/21) positive home test Elevated PSA, less than 10 ng/ml PSA 4.4 on 08/12/2020. PSA 5.3 with 19.4% free PSA on 08/17/2021. PSA 7.1 with 20% free PSA on 08/20/2022. Insomnia Paroxysmal atrial fibrillation Snoring apnea link in hospital was negative on 05/18/2022 Surgical History Surgical History History of cardioversion 2017 Family History Family History Mother Acute myocardial infarction Congestive heart failure Hypertension Father History of blood clots Atrial fibrillation Chronic obstructive pulmonary disease Prostate carcinoma Sibling History of blood clots Diabetes mellitus Hypertension Cerebrovascular accident Sibling Atrial fibrillation Social History Social History Social History: Surrogate medical decision maker: Anny Thomson, spouse. Code status: Full code. Smoking packs per day: 0.5 Smoking cigarettes per day: 10.0 Years smoked: 37 Smoking pack-years: 18.50 Smoking status: Former smoker Tobacco type: cigarettes Additional smoking assessment comments: He smoked for 37 years he smoked a half/day Alcohol intake: current Alcohol use details: The patient was drinking bourbon and beer quite heavily (6 shots and 1-2 beers a day) for the last couple of years since he retired in 2020 but is only rarely drinking 1 beer or bourbon since December 2021 when he had recurrent AFib. Substance use: never Substance use type: does not use Last use: occasionally drinks bourbon, hasn't really since 12/2021 Do You Feel Safe in your Home?: Yes Lack of Transportation: No Lack of Food: Never True Current Housing: I Have Housing Concerned About Future Housing: No Difficulty Paying Gas/Electric Bills: No Difficulty Paying for Meds: No Currently Unemployed: No Education: Trade/Vocational Certificate Difficulty w/ Childcare or Family Care: No Additional living arrangements comments: He lives with his in [place]. They have been since 1983. Additional occupation/education comments: He retired in February 2021. 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 Spiritual care concerns: No Anes - Eval Final PreProcedure Day of Procedure 04/07/24 14:06 Patient weight: normal Heart: regular rate and rhythm and tachycardia Lungs: clear to auscultation Airway: Mallampati scale Neurological: alert and oriented Last oral intake: >/= 8 hours ASA classification: III Emergent: no Anesthetic plan: proceed Anesthesia type and monitoring: general GIVS and standard monitoring Results Review: All pre-operative results and documents have been reviewed as part of the pre-operative evaluation. Chr afib, now for CV. Informed Consent: The patient's anesthetic plan and its attendant risks and benefits were discussed with the patient/family/POA. Questions were solicited and answers provided to the satisfaction of the patient/family/POA.
[2024-04-07] MEDS: DRONEDARONE HCL 400 MG TABLET PO (16:11)
== END 2024-04-07 16:54 | disposition home or self-care (01) ==
PROVIDERS: Internal Medicine; Physician Assistant; Admitting Provider Internal Medicine; PCP Family Medicine; Visit Provider Nurse Practitioner Acute Care
PROC: 5A2204Z Restoration of Cardiac Rhythm, Single (ICD-10-PCS; principal; 2024-04-07 13:30)
DX: I48.91 Unspecified atrial fibrillation (principal); Z79.01 Long term (current) use of anticoagulants; F41.9 Anxiety disorder, unspecified; N40.0 Benign prostatic hyperplasia without lower urinary tract symptoms; I10 Essential (primary) hypertension; I34.1 Nonrheumatic mitral (valve) prolapse; K21.9 Gastro-esophageal reflux disease without esophagitis; F32.A Depression, unspecified; M54.9 Dorsalgia, unspecified; G89.29 Other chronic pain; G47.00 Insomnia, unspecified; Z87.891 Personal history of nicotine dependence; Z86.16 Personal history of COVID-19; Z86.718 Personal history of other venous thrombosis and embolism; Z79.899 Other long term (current) drug therapy
CPT/HCPCS: 36415; 80048; 83735; 84484; 85027; 92960; 93005; A9270; G0378; G0379; J7030; J7040

== ENCOUNTER 2024-09-01 03:21 | Day surgery (SDC) | payer MEDICARE, SELFPAY ==
[2024-08-31 16:07] VITALS: BMI 33.3
[2024-09-01] VITALS (8 sets, daily range): BP systolic 99–127; BP diastolic 72–97; PULSE 49–85; RESP 13–16; TEMP 36.7; O2SAT 96–100
--- OUTSIDE RECORDS SUMMARY | 2024-09-01 03:27 | XMS_ITS | Referral Summary ---
Author Organization [address] Address [address] [place] [id number] Care Team Providers Care Rental Sales Representative Name Role Phone Amari Elizondo MD Primary Care Provider [phone] Bobyb Daniel MD Unavailable [phone] Encounters Date Type Department Care Team Description 08/25/2024 Telephone [facility] Cardiology [address] [place] [address] Gema Miranda MD 08/25/2024 10:00 AM CDT Office Visit [facility] Medical [facility] Cardiology [address] [place] [address] Lena Tompkins NP Paroxysmal atrial fibrillation (HCC) (Primary Dx); Loud snoring; Excessive daytime sleepiness; Need for lipid screening 08/24/2024 Telephone Cardiology Yolande Mendoza DO from Last 3 Months Allergies Active Allergy Reactions Criticality Noted Date Comments Azithromycin Other (See comments) Low 05/23/2020 Bloody stools Medications cholecalciferol (VITAMIN D-3) 2000 unit tablet Take 1 tablet (2,000 Units total) by mouth daily Active cyanocobalamin (Vitamin B-12) 1,000 mcg tablet Take 1 tablet (1,000 mcg total) by mouth daily Active traMADoL (ULTRAM) 50 mg tablet Take 1 tablet (50 mg total) by mouth as needed Active Eliquis 5 mg tablet Take 1 tablet (5 mg total) by mouth every 12 (twelve) hours Active zolpidem (AMBIEN) 10 mg tablet Take 1 tablet (10 mg total) by mouth nightly as needed 2 Active Multaq 400 mg tablet TAKE 1 TABLET BY MOUTH TWICE DAILY WITH FOOD 180 tablet 3 4 Active finasteride (PROSCAR) 5 mg tablet Take 1 tablet (5 mg total) by mouth daily 4 Active metoprolol tartrate (LOPRESSOR) 50 mg immediate release tabletIndications :Paroxysmal atrial fibrillation (HCC) Take 1 tablet (50 mg total) by mouth 2 (two) times a day 4 Active ALPRAZolam (XANAX) 0.25 mg tablet Take 1 tablet (0.25 mg total) by mouth 3 (three) times a day as needed 4 Active MAGNESIUM OXIDE ORAL Take by mouth Active -awhd-H mfolate-algal 27 mg iron-1.13 mg-581.92 mg capsule Take by mouth Active ascorbic acid (ascorbic acid with brennan hips) 500 mg tablet,chewable Acti ve Active Problems Problem Noted Date Diagnosed Date On Multaq therapy 04/23/2024 Assessment & Plan (04/23/2024 8:52 PM PRODUCTION 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 SUPERVISOR): -Patient remains compliant on dronedarone -EKG today does not demonstrate any change that would prohibit the use of dronedarone -while the patient remains on this medication he will require an EKG every 6 months Paroxysmal atrial fibrillation 01/25/2022 Assessment & Plan (04/23/2024 8:43 PM PRODUCTION CLERKS SUPERVISOR): -Symptomatic paroxysmal atrial fibrillation -Normal LV function -remains compliant on dronedarone, apixaban, metoprolol -no medication changes were made today -EKG today demonstrates sinus rhythm -He reports low burden of his atrial arrhythmia -We discussed options for management of his atrial arrhythmia including radiofrequency catheter ablation. -At this time patient's wishes to continue taking his current medications to control his atrial fibrillation concerning his burden is low, and wishes to think about ablation and possibly pursue it was burden increases -Follow up in 6 months for a 12 lead EKG and clinic visit Social History Tobacco Use Types Packs/Day Years Used Date Smoking Tobacco: Never Smokeless Tobacco: Never Tobacco Cessation:Counseling Given: Not Answered AUDIT-C Answer Date Recorded Q1: How often do you have a drink containing alc ohol? 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 Gender Identity Not on file Sexual Orientation Not on file Last Filed Vital Signs Vital Sign Reading Time Taken Comments Blood Pressure 120/80 08/25/2024 10:02 AM CDT Pulse 83 08/25/2024 10:02 AM CDT Temperature 36.7 C (98.1 F) 06/18/2021 10:33 AM PRODUCTION CLERKS SUPERVISOR Respiratory Rate 18 06/18/2021 10:3 3 AM PRODUCTION CLERKS SUPERVISOR Oxygen Saturation 93% 08/25/2024 10: 02 AM CDT Inhaled Oxygen Concentration - - Weight 106.3 kg (234 lb 6.4 oz) 10:02 AM CDT Height 177.8 cm (5' 10 ) 08/25/2024 10: 02 AM CDT Body Mass Index 33.63 08/25/2024 10:02 AM CDT Plan of Treatment Not on file Procedures Procedure Name Priority Date/Time Associated Diagnosis Comments ELECTROCARDIOGRAM REPORT Routine 3:11 PM CDT Paroxysmal atrial fibrillation (HCC) POCT LIPID PANEL Routine 08/25/2024 11:1 2 AM CDT Need for lipid screening from Last 3 Months Results * Electrocardiogram Report (08/25/2024 3:11 PM CDT) Lena Tompkins NP ECG ORDERABLES Final Result * POCT lipid panel (08/25/2024 11:12 AM CDT) Cholesterol, POC 198 mg/dL Comment:GLU = 91 HDL, POC 47 mg/dL Triglycerides, POC 99 mg/dL LDL Cholesterol POC 130 mg/dL Chol/HDL Ratio, POC 2.7 Non-HDL Cholesterol, POC 150 mg/dL Cholesterol Total, POC 198 mg/dL Capillary blood 08/25/2024 1 1:12 AM CDT Lena Tompkins GENERAL TELLER POINT OF CARE TEST ORDERABLE S Final Result from Last 3 Months Insurance [facility] MEDICARE ADVANTAGE Care Teams Rental Sales Representative Relationship Specialty Start Date End Date Amari Elizondo MD [address] [address] PCP - General Family Medicine 06/18/21 Bobby Daniel MD [address] [address] Consulting Physician Clinical Cardiac Electrophysiology 04/23/24
--- OUTSIDE RECORDS SUMMARY | 2024-09-01 03:27 | XMS_ITS | Clinical Summary ---
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 Gender Identity Not on file Sexual Orientation Not on file Plan of Treatment Health Maintenance Due Date Last Done Comments Colorectal Cancer Screening Colonoscopy (10 Years) 1958 Hepatitis C 1976 DTaP, Tdap and Td Vaccines ( 1 - Tdap) 1977 Pneumococcal Vaccine: 50+ Ye ars (1 of 1 - PCV) 2008 Zoster Vaccines (1 of 2) 2008 COVID-19 Vaccine ( - 2023-2 5 season) 2024 RSV Immunization or 60+ Years (1 - 1-dose 75+ series) 2033 Meningococcal B Vaccine Aged Out No l onger eligible based on patient's age to complete this topic Meningococcal Vaccine Aged Out No cristina juana eligible based on patient's age to complete this topic RSV Immunizations Under 20 Months Aged Out No longer eligible based on patient's age to complete this topic
--- OUTSIDE RECORDS SUMMARY | 2024-09-01 03:27 | XMS_ITS | Clinical Summary ---
Author Organization [facility] Address [address] [place] [address] Care Team Providers Care Manager Lighting Name Role Phone Amari Elizondo MD Primary Care Provider [phone] Source Comments [facility],non-owned Affiliates and Associated Physician Practices is amultiple site organization consisting of ambulatory clinics and hospital sitesin [place], [place], [place] and [place]. This disclosure is being madepursuant to the Care Everywhere program and may not contain all information available regarding this patient. Last updated 18.[facility] Allergies Active Allergy Reactions Criticality Noted Date Comments Azithromycin Other 05/23/2020 Bloody stools Medications * Be aware that medications may not be up to date on this document. Alwaysverify current medications with the patient. cyanocobalamin (VITAMIN B-12) 1000 MCG tablet Take 1,000 mcg by mouth once daily Active Vitamin D3, cholecalciferol , 50 MCG (2000 UT) tablet Take 2,000 Units by mouth once daily Active traMADol (ULTRAM) 50 MG tablet Take 50 mg by mouth as needed for Pain Active Zolpidem Tartrate (AMBIEN PO) Take by mouth as needed Active ALPRAZolam (XANAX) 0.5 MG tablet Take 0.25 mg by mouth as needed for Anxiety Active lisinopril (PRINIVIL; ZESTRIL) 40 MG tablet Take 1 tablet by mouth once daily 30 tablet 11 05/23/2020 Active apixaban (ELIQUIS) 5 MG tablet Take 1 (one) tablet by mouth 2 times daily 180 tablet 4 05/31/2020 Active Active Problems Problem Noted Date Diagnosed Date HTN (hypertension), benign 05/30/2020 AF (paroxysmal atrial fibrillation) 05/20/2020 Overview (05/23/2020): ~1991 AF by symptoms -> reverted on his own (no EKG then) 1994 AF -> cardioversion failed, then reverted to SR spontaneously ~1997 AF -> reverted spontaneously 2017 AF by symptoms -> reverted spontaneously 05/31 EKG: AF at 149, tall R-wave in V2, ST/TW abnormality 05/31 AF -> cardioversion 05/31 TSH 1.9 06/02 EKG: SR at 97, intervals [id number] Bradycardia 05/20/2020 Type 2 diabetes mellitus 05/20/2020 Thoracic aortic ectasia 05/20/2020 Overview (05/30/2020): 05/31 Echo: EF 70-75%, mild ventricular septal thickening, normal chamber sizes, normal valves Echo: EF 65-70%, grade 1 diastolic dysfunction, normal valves, RVSP 22, 40 mm aortic root, 42 mm SOV Social History Tobacco Use Types Packs/Day Years Used Date Smoking Tobacco: Former Cigarettes 1 30 0 09/10/1976 - 09/10/2006 Smokeless Tobacco: Never Comments:One or less PPD Sex and Gender Information Value Date Recorded Sex Assigned at Not on file 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 Gender Identity Not on file Sexual Orientation Not on file Last Filed Vital Signs Vital Sign Reading Time Taken Comments Blood Pressure 154/92 05/23/2020 2:37 PM KIDNEY PULLER Pulse 94 05/23/2020 2:37 PM KIDNEY PULLER Temperature - - Respiratory Rate 16 05/23/2020 2:37 PM KIDNEY PULLER Oxygen Saturation 99% 05/23/2020 1:55 PM KIDNEY PULLER Inhaled Oxygen Concentration - - Weight 105.2 kg (232 lb) 05/23/2020 1:55 PM KIDNEY PULLER Height 177.8 cm (5' 10 ) 05/23/2020 1:55 PM KIDNEY PULLER Body Mass Index 33.29 05/23/2020 1:55 PM KIDNEY PULLER Plan of Treatment Health Maintenance Due Date Last Done Comments COLOGUARD (AGES 45-75) - COL ON CA SCREENING 1958 COLON MONITORING 1958 COLONOSCOPY - COLON CA SCREENING 1958 CT COLONOGRAPHY - COLON CA SCREENING 1958 Colorectal Cancer Screening 1958 FIT - COLON CA SCREENING 1958 FLEX SIG - COLON CA SCREENING 1958 HIV SCREENING 1973 HEPATITIS C SCREENING 11/07/1976 DTAP/TDAP/TD VACCINES (1 - Tdap) 1977 DIABETES-STATIN 1998 LUNG CANCER SCREENING 2008 PNEUMOCOCCAL VACCINE 50+ (1 of 1 - PCV) 2008 ZOSTER VACCINE (1 of 2) 2008 DIABETES-SERUM CREATININE 09/23/20182017, 09/23/2017 DIABETES-FOOT EXAM WITH MONOFILAMENT 05/20/2020 DIABETES-HGB A1C 05/20/2020 AAA SCREENING 11/13/2023 COVID-19 VACCINE (1 - 2023-2 5 season) 2024 DEPRESSION SCREENING 05/13/2024 DIABETES - URINE PROTEIN SCREENING 05/13/2024 INFLUENZA VACCINE (Season Ended) 2025 Respiratory Syncytial Virus (RSV) Vaccine Pt: or over 60 yrs (1 - 1-dose 75+ series) 2033 HEPATITIS B VACCINE Aged Out No longe r eligible based on patient's age to complete this topic HIB VACCINE Aged Out No longer eligi ble based on patient's age to complete this topic HPV VACCINE Aged Out No longer eligi ble based on patient's age to complete this topic MENINGOCOCCAL (Group B) VACCINE SHARED DECISION-MAKING Aged Out No longer eligible based on patient's age to complete this topic MENINGOCOCCAL GROUPS A/C/Y/W VACCINE Aged Out No longer eligible b ased on patient's age to complete this topic Insurance [facility] Address: [facility] [id number] RAJESH ENOC [id number] Care Teams Manager Lighting Relationship Specialty Start Date End Date Amari Elizondo MD [address] [place] [address] PCP - General Family Medicine 05/09/20
--- OUTSIDE RECORDS SUMMARY | 2024-09-01 03:27 | XMS_ITS | Clinical Summary ---
Author Organization [facility] Address [address] [place] [id number] Care Team Providers Care Foot Miter Operator Name Role Phone Amari Elizondo MD Primary Care Provider [phone] Bobby Daniel MD Unavailable [phone] Allergies Active Allergy Reactions Criticality Noted Date [...] total) by mouth every 12 (twelve) hours 2 Active zolpidem (AMBIEN) 10 mg tablet Take [...] MAGNESIUM OXIDE ORAL Take by mouth Active [id number] mfolate-algal 27 mg iron-1.13 mg-581.92 mg capsule Take by mouth Active ascorbic acid (ascorbic acid with brennan hips) 500 mg tablet,chewable Acti ve Active Problems Problem Noted Date Diagnosed Date On Multaq therapy 04/23/2024 Assessment & Plan (04/23/2024 8:52 PM [employer]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): -Patient remains compliant on dronedarone -EKG today does not demonstrate any change that would prohibit the use of dronedarone -while the patient remains on this medication he will require an EKG every 6 months Paroxysmal atrial fibrillation 01/25/2022 Assessment & Plan (04/23/2024 8:43 PM [employer]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): -Symptomatic paroxysmal atrial fibrillation -Normal LV function [...] a 12 lead EKG and clinic visit Encounters Date Type Department Care Team Description 08/25/2024 10:00 AM CDT Office Visit [facility] Cardiology [address] [place] [address] [id number] Lena Tompkins NP Paroxysmal atrial fibrillation (HCC) (Primary Dx); Loud snoring; Excessive daytime sleepiness; Need for lipid screening 08/25/2024 Telephone [facility] Medical [facility] Cardiology [address] [facility] [address] [place] [id number] Gema Miranda MD 08/24/2024 Telephone Cardiology Yolande Mendoza DO from Last 3 Months Medical History Medical History Date Comments Hypertension Social History Tobacco Use Types Packs/Day Years [...] on file Legal Sex Male 4:25 PM [employer]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 Gender Identity Not on file Sexual Orientation Not on file Obstetrics History Last Filed Vital Signs Vital Sign Reading Time Taken Comments Blood Pressure 120/80 08/25/2024 10:02 AM CDT Pulse 83 08/25/2024 10:02 AM CDT Temperature 36.7 C (98.1 F) 06/18/2021 10:33 AM [employer]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 Respiratory Rate 18 06/18/2021 10:3 3 AM [employer]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 Oxygen Saturation 93% 08/25/2024 10: 02 AM CDT Inhaled Oxygen Concentration - - Weight 106.3 kg (234 lb 6.4 oz) 025 10:02 AM CDT Height 177.8 cm (5' 10 ) 08/25/2024 10: 02 AM CDT Body Mass Index 33.63 08/25/2024 10:02 AM CDT Plan of Treatment Health Maintenance Due Date Last Done Comments Colon Cancer Screening-Colonoscopy 1958 Depression Screening 1958 Fall Risk Assessment 1958 Hepatitis C Screening 1958 Prostate Cancer Screening-PSA 1958 DTaP/Tdap/Td Vaccine (1 - Tdap) 1969 Hepatitis B Screening 1976 Pneumococcal vaccine 65+ (1 of 1 - PCV) 2008 Zoster Vaccine (1 of 2) 2008 Well Visit 65+ 11/13/2023 Covid-19 Vaccine ( - season) 2024, 09/16/2020 Influenza Vaccine (Season Ended) 2025 Procedures Procedure Name Priority Date/Time Associated Diagnosis Comments ELECTROCARDIOGRAM REPORT Routine 025 3:11 PM CDT Paroxysmal atrial fibrillation (HCC) [...] 08/25/2024 1 1:12 AM CDT Lena Tompkins NP POINT OF CARE TEST ORDERABLE S Final Result from Last 3 Months Insurance [facility] MEDICARE ADVANTAGE Care Teams Foot Miter Operator Relationship Specialty Start Date End Date Amari Elizondo MD [address] [id number] PCP - General Family Medicine 06/18/21 Bobby Daniel MD [address] [id number] Consulting Physician Clinical Cardiac Electrophysiology 04/23/24
--- NOTE | 2024-09-01 08:30 | ECG_ITS ---
Test Date: 2024-09-01 08:58:26 Measurements Intervals [place] Rate: 81 P: 0 DE: 0 QRS: -36 QRSD: 84 T: 3 QT: 328 QTc: 383 Interpretive Statements ATRIAL FIBRILLATION LEFT AXIS DEVIATION INFERIOR INFARCT, AGE INDETERMINATE BASELINE ARTIFACT- I, II, III, AVF, V5 ABNORMAL ECG Compared to ECG 04/07/2024 14:07:52 Sinus rhythm no longer present Electronically Signed On 09-01-2024 09:02:33 CDT by Luke Claudio D.O.
--- NOTE | 2024-09-01 09:30 | ECG_ITS ---
Test Date: 2024-09-01 10:48:26 Measurements Intervals [place] Rate: 47 P: 12 MO: 210 QRS: -30 QRSD: 85 T: -3 QT: 407 QTc: 363 Interpretive Statements SINUS BRADYCARDIA WITH FIRST DEGREE AV BLOCK LOW QRS VOLTAGE IN PRECORDIAL LEADS INFERIOR INFARCT, AGE INDETERMINATE ABNORMAL ECG Compared to ECG 09/01/2024 08:58:26 ATRIAL FIBRILLATION NO LONGER PRESENT Electronically Signed On 09-01-2024 12:27:51 CDT by Luke Claudio D.O.
--- NOTE | 2024-09-01 09:54 | WPDHPUPDATE1 ---
History and Physical Update Update Date/Time: 09/01/24 09:54 History and Physical has been reviewed, including an updated exam of the patient. There are NO changes in the patient's condition. Risks, benefits, and alternatives have been discussed and questions answered. Patient agrees to proceed with procedure.
--- NOTE | 2024-09-01 09:54 | WPDMODSED ---
Moderate Sedation Note-Pt Data Patient Data Diagnosis: Atrial fibrillation Present Complaint: Atrial fibrillation Procedure to be performed/Plan: Synchronized electrical cardioversion Allergies Allergy/AdvReac Type Severity Reaction Status Date / Time azithromycin AdvReac Mild BLOOD IN Verified 08/31/24 16:04 STOOL Home Medications ?Medication ?Instructions ?Recorded ?Confirmed ?Type cyanocobalamin (vitamin B-12) 1,000 mcg PO DAILY 05/19/22 08/31/24 History 1,000 mcg tablet (Vitamin B-12) dronedarone 400 mg tablet (Multaq) 400 mg PO BIDWM #60 tabs 05/21/22 08/31/24 Rx cholecalciferol (vitamin D3) 50 2,000 unit PO DAILY 06/04/22 08/31/24 History mcg (2,000 unit) tablet (Vitamin D3) apixaban 5 mg tablet (Eliquis) 5 mg PO BID #60 tabs 01/02/24 08/31/24 Rx finasteride 5 mg tablet 5 mg PO DAILY 04/05/24 08/31/24 History audxpnck-zl-ipntw 300 mcg-K 60 1 tablet PO DAILY 04/05/24 08/31/24 History mcg-lycop 600 mcg-lutein 300 mcg tablet (Centrum Silver Men) tramadol 50 mg tablet 50 mg PO PRN PRN Back Pain 04/05/24 08/31/24 History zolpidem 10 mg tablet (Ambien) 10 mg PO QHS PRN insomnia #30 tabs 05/21/24 08/31/24 Rx alprazolam 0.25 mg tablet (Xanax) 0.25 mg PO TID PRN anxiety #30 tabs 08/25/24 08/31/24 Rx metoprolol tartrate 50 mg tablet 50 mg PO Q12H #60 tabs 08/26/24 08/31/24 Rx magnesium oxide 500 mg capsule 500 mg PO DAILY 08/31/24 08/31/24 History Sedation/Anesthesia: No previous sedation/anesthesia problems (including family history). [facility] Past Medical History Medical History At low risk for fall Welcome to Medicare preventive visit Chronic back pain Benign prostatic hyperplasia Chronic anticoagulation Chronic depression Snoring apnea link in hospital was negative on 05/18/2022 Paroxysmal atrial fibrillation COVID-19 (10/23/21) positive home test Colon cancer screening Negative Cologuard screening on 12/04/2022. Acute superficial venous thrombosis of lower extremity (06/04/21) superficial vein thrombosis in the left lesser saphenous vein Elevated PSA, less than 10 ng/ml PSA 4.4 on 08/12/2020. PSA 5.3 with 19.4% free PSA on 08/17/2021. PSA 7.1 with 20% free PSA on 08/20/2022. PSA 2.8 on 07/30/2023. Insomnia Surgical History Surgical History History of cardioversion 2017 Family History Family History Mother Acute myocardial infarction Congestive heart failure Hypertension Father History of blood clots Atrial fibrillation Chronic obstructive pulmonary disease Prostate carcinoma Sibling History of blood clots Diabetes mellitus Hypertension Cerebrovascular accident Sibling Atrial fibrillation Social History Social History Social History: Surrogate medical decision maker: Anny Thomson, spouse. Code status: Full code. Smoking packs per day: 0.5 Smoking cigarettes per day: 10.0 Years smoked: 37 Smoking pack-years: 18.50 Smoking status: Former smoker Tobacco type: cigarettes Additional smoking assessment comments: He smoked for 37 years he smoked a half/day Alcohol intake: never Alcohol use details: The patient was drinking bourbon and beer quite heavily (6 shots and 1-2 beers a day) for the last couple of years since he retired in 2020 but is only rarely drinking 1 beer or bourbon since December 2021 when he had recurrent AFib. Substance use: never Substance use type: does not use Last use: occasionally drinks bourbon, hasn't really since 12/2021 Do You Feel Safe in your Home?: Yes Lack of Transportation: No Lack of Food: Never True Current Housing: I Have Housing Concerned About Future Housing: No Difficulty Paying Gas/Electric Bills: No Difficulty Paying for Meds: No Currently Unemployed: No Education: Trade/Vocational Certificate Difficulty w/ Childcare or Family Care: No Living arrangements: with family Additional living arrangements comments: He lives with his in [place]. Additional occupation/education comments: He retired in February 2021. 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 Spiritual care concerns: No Mod Sed Physical Exam Physical Exam Pre Procedural Exam: Normal: Appearance, Lungs, Neuro Exam, Extremities and Skin and Variation: Heart Rate (Rate controlled AFIB) and Heart Rhythm (Rate controlled AFIB) Hours since solid foods: 12 Hours since liquid intake: 8 Mallampati Classification: class III Internal Medicine - PN: Obj Da Vital Signs Vital Signs: Vital Signs - 24 hr 09/01/24 09:01 Temperature 36.7 C Pulse Rate 82 Respiratory Rate 13 Blood Pressure 127/97 H Pulse Oximetry 100 Oxygen Delivery Room Air Labs 09/01/24 09:45 ASA Classification/Sedation ASA Classification/Sedation ASA Class: III Emergent: No Risks: Risks, benefits and alternatives explained and patient/family accepted plan for sedation. Patient re-evaluated immediately prior to sedation.
[2024-09-01 10:34] LABS: Anion Gap 11 mmol/L (4-12); Blood Urea Nitrogen 12 mg/dL (9-20); Calcium 9.2 mg/dL (8.4-10.2); Carbon Dioxide 18 mmol/L (22-30); Chloride 110 mmol/L (98-107); Estimated CRCL calculation 89 ml/min; Estimated Glomerular Filt Rate > 60; Glucose 96 mg/dL (65-110); Magnesium 2.3 mg/dL (1.6-2.3); Potassium 5.2 mmol/L (3.4-5.0); Sodium 139 mmol/L (137-145)
[2024-09-01] MEDS: PROPOFOL IV EMULSION 200 MG/20 ML VIAL 80 MG IV PUSH (10:42)
--- NOTE | 2024-09-01 10:49 | P.PCNCVR_ITS ---
Cardioversion Cardioversion Date of procedure: 09/01/24 Procedure: Synchronized electrical cardioversion Pre-op diagnosis: Atrial fibrillation Post-op diagnosis: Other (Successful cardioversion to sinus rhythm. ) Indications: Atrial fibrillation Description of procedure: Written informed consent obtained. Defibrillator pads placed in an anterior- posterior position. Time out performed by ANDRE Garland. Total of Propofol 80mg IV was administered by me. Once patient was adequately sedated, synchronized electrical cardioversion was performed with 1 shock at 250 joules, which successfully restored sinus rhythm. Patient's hemodynamics and respiratory status was monitored throughout the procedure. No periprocedural complications. Procedure start time: 10:42 AM Procedure end time: 10:45 AM Sedation: Total of Propofol 80mg IV was administered by me. Findings: Successful synchronized electrical cardioversion to sinus rhythm with 1 shock at 250 joules. Conclusion: Successful synchronized electrical cardioversion to sinus rhythm with 1 shock at 250 joules.
== END 2024-09-01 12:00 | disposition home or self-care (01) ==
PROVIDERS: PCP Family Medicine; Visit Provider Internal Medicine
PROC: 5A2204Z Restoration of Cardiac Rhythm, Single (ICD-10-PCS; principal; 2024-09-01 10:00)
DX: I48.0 Paroxysmal atrial fibrillation (principal)
CPT/HCPCS: 36415; 80048; 83735; 92960; J2704; J7040

== ENCOUNTER 2025-04-03 12:18 | Emergency (ER) | payer MEDICARE, SELFPAY ==
[2025-04-03 12:30] VITALS: BP 155/85; PULSE 67; RESP 20; TEMP 36.4; O2SAT 100
--- NOTE | 2025-04-03 13:03 | ED.URI ---
HPI - URI/Sore Throat General Chief Complaint: Upper Respiratory Infection Stated Complaint: SINUS/COUGH/CONGESTION History of Present Illness HPI Narrative: CHIEF COMPLAINT: Cough PATIENT SUMMARY: The patient presented with a cough. HISTORY OF PRESENT ILLNESS: The patient presented with a cough that had been ongoing for over two weeks. Initially, the cough was accompanied by general weakness and later progressed to include earache, sinus pressure, and drainage. This past week, the patient experienced sneezing and a runny nose, similar to symptoms experienced during a previous COVID-19 infection; however, a COVID test was negative. The patient reported a fever of about one degree for two days, specifically on Saturday and Saturday. The cough was described as rattly. The patient expressed concern about ruling out pneumonia. The patient did not report any shortness of breath beyond what is usual for them and noted that no one else around them had been sick. The patient did not report any significant pain, only mild pressure pain on both sides of the sinuses. PAST MEDICAL HISTORY: The patient was prone to atrial fibrillation but was in normal sinus rhythm at the time of the visit. REVIEW OF SYSTEMS: Respiratory: Positive for cough and phlegm production. Negative for shortness of breath. Ears/Nose/Throat: Positive for earache, sinus pressure, drainage, sneezing, and runny nose. Negative for significant pain or abnormal drainage. General: Positive for general weakness and mild fever. Negative for any other systemic symptoms. PAST SURGICAL HISTORY: No surgical history provided. MEDICATIONS: - Multaq 400 mg - Eliquis (dosage not specified) - Metoprolol (dosage not specified) - Finasteride (dosage not specified) ALLERGIES: - Zithromycin (reaction not specified) FAMILY HISTORY: Not provided. SOCIAL HISTORY: Not provided. VITALS AND PHYSICAL EXAM: Vitals not measured. Cardiac: Normal heart sounds, no extra noises. Respiratory: Lungs clear, no extra noises. DIAGNOSTIC STUDIES: Not available. ASSESSMENT: The differential diagnosis was listed in order of most to least likely. 1. Acute Sinusitis: The patient presented with symptoms consistent with sinusitis, including sinus pressure, drainage, and earache, ongoing for over two weeks. The negative COVID test and lack of significant systemic symptoms make this the most likely diagnosis. 2. Viral Upper Respiratory Infection: The presence of sneezing, runny nose, and mild fever could indicate a viral infection. However, the duration and progression of symptoms suggest a bacterial cause is more likely. 3. Pneumonia: Given the patient's concern about pneumonia and symptoms of a rattly cough, it is a possible consideration. However, the clear lung sounds during the physical examination and absence of significant respiratory distress lessen the likelihood of this diagnosis. PLAN: Treatment: - Prescribed Augmentin for suspected bacterial sinusitis. - Recommended Flonase (fluticasone), two sprays each nostril daily. Tests: - None ordered. Patient Education: - Advised on the use of Mucinex DM or Delsym for cough management, safe with heart conditions. - Suggested the use of a neti pot with distilled water for sinus drainage. Follow-Up: - Instructed to monitor symptoms and return if symptoms worsen or do not improve with treatment. 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 MEDICAL DECISION MAKING: The patient's history of present illness included symptoms typical of sinusitis, with a cough, sinus pressure, and related symptoms lasting over two weeks. Testing for COVID was negative, and the negative findings during the lung examination reduced the likelihood of pneumonia. The plan of care included prescribing antibiotics, recommending nasal spray, and advising on fiam-tma-doletgm medications safe for heart conditions. The differential diagnosis focused on sinusitis as the most likely condition, with viral infection and pneumonia as less likely possibilities. The treatment plan was designed to address the likely bacterial cause while ensuring safe management of symptoms considering the patient's cardiac history. Related Data Home Medications ?Medication ?Instructions ?Recorded ?Confirmed ?Last Taken ?Type cyanocobalamin (vitamin B-12) 1,000 mcg PO DAILY 05/19/22 11/18/24 Unknown History 1,000 mcg tablet (Vitamin B-12) cholecalciferol (vitamin D3) 50 2,000 unit PO DAILY 06/04/22 11/18/24 Unknown History mcg (2,000 unit) tablet (Vitamin D3) finasteride 5 mg tablet 5 mg PO DAILY 04/05/24 11/18/24 Unknown History gwuxifma-us-skdge 300 mcg-K 60 1 tablet PO DAILY 04/05/24 11/18/24 Unknown History mcg-lycop 600 mcg-lutein 300 mcg tablet (Centrum Silver Men) tramadol 50 mg tablet 50 mg PO PRN PRN Back Pain 04/05/24 11/18/24 Unknown History magnesium oxide 500 mg capsule 500 mg PO DAILY 08/31/24 11/18/24 08/31/24 History Allergies Allergy/AdvReac Type Severity Reaction Status Date / Time azithromycin AdvReac Mild BLOOD IN Verified 04/03/25 13:23 STOOL Review of Systems Review of Systems: All systems reviewed & are unremarkable except as noted in HPI and below Eyes: Eyes: Reports as per HPI ENT: Reports as per HPI Cardiovascular: Cardiovascular: Reports as per HPI Respiratory: Respiratory: Reports as per HPI Genitourinary: Genitourinary: Reports as per HPI Musculoskeletal: Musculoskeletal: Reports as per HPI Integumentary/Breasts: Skin/Breast: Reports as per HPI Neurologic: Reports as per HPI Psychiatric: Psychiatric: Reports as per HPI Endocrine: Endocrine: Reports as per HPI Hematologic/Lymphatic: Hematologic/Lymphatic: Reports as per HPI Allergic/Immunologic: Allergic/Immunologic: Reports as per HPI PMF Past Medical History Medical History (Updated 04/03/25 @ 13:04 by Dotty Garcia APRN) Abscess of skin Acute superficial venous thrombosis of lower extremity (06/04/21) superficial vein thrombosis in the left lesser saphenous vein At low risk for fall Benign prostatic hyperplasia Chronic anticoagulation Chronic back pain Chronic depression Colon cancer screening Negative Cologuard screening on 12/04/2022. COVID-19 (10/23/21) positive home test Elevated PSA, less than 10 ng/ml PSA 4.4 on 08/12/2020. PSA 5.3 with 19.4% free PSA on 08/17/2021. PSA 7.1 with 20% free PSA on 08/20/2022. PSA 2.8 on 07/30/2023. Insomnia Paroxysmal atrial fibrillation Snoring apnea link in hospital was negative on 05/18/2022 Welcome to Medicare preventive visit Surgical History Surgical History History of cardioversion 2017 Family History Family History Mother Acute myocardial infarction Congestive heart failure Hypertension Father History of blood clots Atrial fibrillation Chronic obstructive pulmonary disease Prostate carcinoma Sibling History of blood clots Diabetes mellitus Hypertension Cerebrovascular accident Sibling Atrial fibrillation Social History Social History Social History: Surrogate medical decision maker: Anny Thomson, spouse. Code status: Full code. Smoking packs per day: 0.5 Smoking cigarettes per day: 10.0 Years smoked: 37 Smoking pack-years: 18.50 Smoking status: Former smoker Tobacco type: cigarettes Additional smoking assessment comments: He smoked for 37 years he smoked a half/day Alcohol intake: never Alcohol use details: The patient was drinking bourbon and beer quite heavily (6 shots and 1-2 beers a day) for the last couple of years since he retired in 2020 but is only rarely drinking 1 beer or bourbon since December 2021 when he had recurrent AFib. Substance use: never Substance use type: does not use Last use: occasionally drinks bourbon, hasn't really since 12/2021 Do You Feel Safe in your Home?: Yes Lack of Transportation: No Lack of Food: Never True Current Housing: I Have Housing Concerned About Future Housing: No Difficulty Paying Gas/Electric Bills: No Difficulty Paying for Meds: No Currently Unemployed: No Education: Trade/Vocational Certificate Difficulty w/ Childcare or Family Care: No Living arrangements: with family Additional living arrangements comments: He lives with his in [place]. Additional occupation/education comments: He retired in February 2021. 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 care concerns: No Exam Const: General: cooperative, healthy appearing, comfortable, no acute distress and well developed Orientation/consciousness: patient oriented x3 HENMT: Head: normal to inspection Face and sinus: sinus tenderness frontal and maxillary Eyes: General: appearance normal, both eyes and all related structures Resp: Effort & Inspection: normal respiratory effort and able to speak in complete sentences Auscultation: clear to auscultation bilaterally Cardio: Rate: regular rate Rhythm: regular rhythm Heart sounds: S1 normal heart sound present and S2 normal heart sound present Skin: General skin exam: normal color Neuro: General: patient oriented x3 Cognition (Neuro): normal cognition Speech: normal speech Psych: Mental Status: mental status grossly normal Course Course Level of Care: Express Care Visit Vital Signs Vital signs: Vital Signs Temperature 97.6 F 04/03/25 12:30 Pulse Rate 67 04/03/25 12:30 Respiratory Rate 20 04/03/25 12:30 Blood Pressure 155/85 H 04/03/25 12:30 Pulse Oximetry 100 04/03/25 12:30 Oxygen Delivery Room Air 04/03/25 12:30 Temperature 97.6 F 04/03/25 12:30 Pulse Rate 67 04/03/25 12:30 Respiratory Rate 20 04/03/25 12:30 Blood Pressure 155/85 H 04/03/25 12:30 Pulse Oximetry 100 04/03/25 12:30 Oxygen Delivery Room Air 04/03/25 12:30 MDM - URI/Sore Throat MDM Narrative Medical decision making narrative: MEDICAL DECISION MAKING: The patient's history of present illness included symptoms typical of sinusitis, with a cough, sinus pressure, and related symptoms lasting over two weeks. Testing for COVID was negative, and the negative findings during the lung examination reduced the likelihood of pneumonia. The plan of care included prescribing antibiotics, recommending nasal spray, and advising on vyxh-gnh-wtpggjl medications safe for heart conditions. The differential diagnosis focused on sinusitis as the most likely condition, with viral infection and pneumonia as less likely possibilities. The treatment plan was designed to address the likely bacterial cause while ensuring safe management of symptoms considering the patient's cardiac history. Differential Diagnosis Differential diagnosis: Likely sinusitis, viral infection, bronchitis and influenza Medical Records Attestation: I reviewed the patient's medical records. Discharge Plan Discharge Clinical Impression: Acute recurrent maxillary sinusitis Patient Disposition: Home Condition: Stable Instructions: Antibiotic Form, Sinusitis (ED) Additional Instructions: Coricidin HBP is an option and safe for you. Netti pot as we discussed. I do encourage the use of probiotics when on antibioitcs to help keep the good eduardo in the gut normal. Patient Language: Cook Islander Prescriptions: New fluticasone propionate [24 Hour Allergy Relief] 50 mcg/actuation spray,suspension 2 spray intranasal DAILY Qty: 16 0RF Rx Instructions: administer into each nostril amoxicillin-pot clavulanate 875-125 mg tablet 1 tablet PO Q12H Qty: 14 0RF No Action finasteride 5 mg tablet 5 mg PO DAILY cholecalciferol (vitamin D3) [Vitamin D3] 50 mcg (2,000 unit) tablet 2,000 unit PO DAILY tramadol 50 mg tablet 50 mg PO PRN PRN (Reason: Back Pain) Centrum Silver Men [id number] mcg Tablet 1 tablet PO DAILY magnesium oxide 500 mg capsule 500 mg PO DAILY cyanocobalamin (vitamin B-12) [Vitamin B-12] 1,000 mcg Tablet 1,000 mcg PO DAILY Multaq 400 mg Tablet 400 mg PO BIDWM Qty: 60 0RF alprazolam [Xanax] 0.25 mg tablet 0.25 mg PO TID PRN (Reason: anxiety) Qty: 30 5RF metoprolol tartrate 50 mg tablet 25 mg PO Q12H Qty: 60 11RF Eliquis 5 mg tablet 5 mg PO BID Qty: 60 11RF Follow-up/Referrals: Amari Elizondo MD [Primary Care Provider, Family Practice] Time of Disposition: 13:09
== END 2025-04-03 13:32 | disposition home or self-care (01) ==
PROVIDERS: Emergency Provider Nurse Practitioner Family; PCP Family Medicine
DX: J01.01 Acute recurrent maxillary sinusitis (principal); I48.0 Paroxysmal atrial fibrillation; N40.0 Benign prostatic hyperplasia without lower urinary tract symptoms; Z87.891 Personal history of nicotine dependence; Z86.16 Personal history of COVID-19; Z86.718 Personal history of other venous thrombosis and embolism; Z79.01 Long term (current) use of anticoagulants
CPT/HCPCS: 99213; G0463